=== PATIENT | female | born 1940 | race Caucasian/White ===

== ENCOUNTER 2024-07-17 09:28 | Outpatient (RCR) | payer OTHER, SELFPAY ==
--- NOTE | 2024-07-17 13:26 | CTCCONSULT_ITS ---
[address] [address] RE: MYNOR ELLIS.: 1940 AGE: 84 DATE OF CONSULTATION: 07/17/2024 DIAGNOSIS: Unprovoked?deep vein thrombosis diagnosed on 06/04/2024 on Eliquis REFERRING PHYSICIAN: Reva Pradhan PRIMARY PHYSICIAN :Reva Pradhan REASON FOR CONSULTATION: Leukopenia and anemia HISTORY OF PRESENT ILLNESS: Patient is a 84-year-old woman with a history of cervical cancer and she was treated with radiation t herapy. Patient developed right lower leg swelling. Patient was active and he was not sick. Patien t slept and woke up with right leg swelling. Patient gives a similar's history of leg swelling in left and at that time she had an x-ray but no ultrasound was obtained. That swelling healed on its own. Patient is concerned that she likely had DVT at that time to. Patient says that her vision is not as good as before. Otherwise do not have any residual weakness. Body part. 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 GI: No nausea, vomiting, diarrhea or constipation. CVS: No palpitations or angina pains. Respiratory: No cough, chest pain or shortness of breath. VITAL SIGNS: Date 07/17/2024 Time 9:38 AM Vital Signs, Weight and PS ? ??T (F) (F) 97.3 ??P 68 ??B/P (mmHg) 177/105 ??Height (in) (inch) 63 ??Weight (lb) (lb) 118 ??BSA(D) (m*2) 1.55 PHYSICAL EXAMINATION: Conjunctivae is white. Oral cavity is dry. Chest is clear to auscultation. No wheezes or rales audible. CVS: Rhythm regular, no murmurs or gallops present. Abdomen is soft. No hepatosplenomegaly. Extremities: Right leg visibly swollen than the left, no redness over the right leg, pulses not palpa ble on the right leg likely from swelling, swelling is extending all over to the area above knee ECOG 0 LABORATORY DATA: Date Time ASSESSMENT: Acute deep vein thrombus unprovoked Patient is a elderly 84-year-old very active woman Patient is independent of her daily activities. Given the history of cervical cancer, concern is for malignancy reoccurrence which likely increased her risk of blood clot Also patient was noted to have stroke on the CT scan and MRI was recommended for the brain I will also like to scan her right leg as swelling is persistent after more than 1 month of anticoagu lation to see if there is a clot which is still occlusive or nonocclusive No no anticoagulation workup at this time as it will not be accurate as patient is on blood thinner a nd have a clot PLAN: ??MRI brain to evaluate for stroke Continue Eliquis Ultrasound of the leg to see if patient's clot is getting better D-dimer level to monitor for the future Will get CT chest abdomen pelvis with IV contrast to evaluate for any reoccurrence of tumor to see if malignancy is causing the clot formation Patient should drink lots of water before and after the scan to avoid injury to the kidneys ORDERS: MRI + With Contrast + Brain Ultrasound ... Follow Up 1 Week RETURN TO CLINIC: cc: Irene Pradhan, Referring: Reva Pradhan Electronically Signed 07/17/2024 at 1:23 PM Herb Love MD Patient: MYNOR ELLIS : 1940 MR#: [id number] Account: [id number] FOLLOW UP NOTE Page 2 of 3
== END 2024-07-28 23:59 | disposition home or self-care (01) ==
LOC: SCTC 09:28
PROVIDERS: PCP Physician Assistant; Referring Provider Physician Assistant; Visit Provider Internal Medicine Hematology & Oncology
DX: I82.401 Acute embolism and thrombosis of unspecified deep veins of right lower extremity (principal); Z85.41 Personal history of malignant neoplasm of cervix uteri; Z79.01 Long term (current) use of anticoagulants
CPT/HCPCS: 99213; G0463

== ENCOUNTER → 2024-07-20 | Outpatient (CLI) | payer OTHER, SELFPAY ==
[2024-07-20 11:25] LABS: D-Dimer 550 ng/mL (<600)
== END | disposition home or self-care (01) ==
PROVIDERS: PCP Family Medicine; Referring Provider Internal Medicine Hematology & Oncology; Visit Provider Internal Medicine Hematology & Oncology
DX: I82.90 Acute embolism and thrombosis of unspecified vein (principal)
CPT/HCPCS: 36415; 85379

== ENCOUNTER → 2024-08-06 | Outpatient (CLI) | payer OTHER, SELFPAY ==
--- NOTE | 2024-08-06 13:06 | XR_ITS ---
Examination: Duplex scan of the lower extremity, unilateral right complete Date and time of exam: August 06, 2024 1415 hours INDICATIONS: Venous Doppler June 04, 2024 positive for acute occlusive thrombus right popliteal right peroneal right posterior tibial veins, undergoing chemotherapy Technique: Duplex scan of the extremity veins using B-mode/grayscale imaging and Doppler spectral analysis and color flow Attention is directed to internal echogenicity, compression and augmentation involving these veins, color flow assessment, spectral analysis Findings: Positive for nonocclusive thrombus involving the right popliteal right peroneal veins IMPRESSION: Improvement compared to venous Doppler June 04, 2024 but nonocclusive thrombus remains in the right popliteal right peroneal veins
[2024-08-06 17:18] LABS: Alanine Aminotransferase 10 U/L (10-49); Albumin, Serum 4.3 gm/dL (3.4-4.8); Albumin/Globulin Ratio 2.4 (1.2-2.2); Alkaline Phosphatase 53 U/L (46-116); Anion Gap 6 (7-16); Aspartate Amino Transferase 15 U/L (0-34); BUN/Creatinine Ratio 20 Ratio (12-20); Bilirubin,Total 0.5 mg/dL (0.3-1.2); Blood Urea Nitrogen 32 mg/dL (9-23); Calcium 9.6 mg/dL (8.3-10.6); Calcium (Corrected) 9.6 mg/dL (8.5-10.1); Carbon Dioxide 29.6 mMol/L (20.0-31.0); Chloride 104 mMol/L (98-107); Creatinine (Component) 1.6 mg/dL (0.6-1.3); Globulin 1.8 gm/dL (2.3-3.5); Glucose 91 mg/dL (74-106); Osmolality,Calculated 286 (275-295); Potassium 3.6 mMol/L (3.4-5.1); Sodium 140 mMol/L (136-145); Total Protein 6.1 gm/dL (5.7-8.2); eGFR 32 See Note
== END | disposition home or self-care (01) ==
LOC: CDIM 12:43 → SCTO 14:39
PROVIDERS: PCP Family Medicine; Referring Provider Internal Medicine Hematology & Oncology; Visit Provider Internal Medicine Hematology & Oncology
DX: I82.431 Acute embolism and thrombosis of right popliteal vein (principal)
CPT/HCPCS: 36415; 80053; 93971

== ENCOUNTER → 2024-08-09 | Outpatient (CLI) | payer OTHER, SELFPAY ==
--- NOTE | 2024-08-09 08:00 | XR_ITS ---
Examination: MRI brain without intravenous contrast. Date and time of exam: August 09, 2024 0826 hours INDICATIONS: Diagnosis acute embolism and thrombosis of unspecified deep veins of the right lower extremity, headaches dizziness worsening loss of vision numbness and paresthesias in the legs 4 months Technique: Multiple axial and sagittal images of the brain obtained. Siemens high-resolution 1.5 Georgette short bore scanners utilized. Sagittal sections, T1-weighted, TR 500, TE 14, are performed. Axial sections proton-density and T2-weighted have been obtained. Inversion recovery axial images, TR 9, 260, TE 111, TI 2500. Diffusion weighted images, axial sections, TR 4800, TE 128, B value 1000 Axial sections, ADC map, TR 4800, TE 128 Findings: Enlargement of the sella turcica is not present. The optic chiasm and infundibular are not remarkable. Prepontine and interpeduncular cisterns are not enlarged. There is no localized enlargement of the medulla or nate. Fourth ventricle and cerebellar tonsils appear normal in position. No subacute area of hemorrhage density is seen. Mass in the cerebellopontine angle region is not evident. Globes symmetrical. Orbital musculature including medial lateral rectus muscles do not exhibit abnormality. Diffusion-weighted images demonstrate no focus of restricted diffusion. Increased white matter signal prominent Mass effect upon the ventricular system is not identified. Impression: Negative for acute hemorrhage mass effect or midline shift No acute infarct Prominent microvascular white matter change, differential would include chronic multi-infarct dementia pattern
== END | disposition home or self-care (01) ==
PROVIDERS: PCP Family Medicine; Referring Provider Internal Medicine Hematology & Oncology; Visit Provider Internal Medicine Hematology & Oncology
DX: R90.82 White matter disease, unspecified (principal)
CPT/HCPCS: 70551

== ENCOUNTER 2024-08-13 14:18 | Outpatient (RCR) | payer OTHER, SELFPAY | END 2024-08-28 23:59 | disposition home or self-care (01) | LOC: SCTC 14:18 | PROVIDERS: PCP Family Medicine; Referring Provider Family Medicine; Visit Provider Nurse Practitioner Family | DX: I82.401 Acute embolism and thrombosis of unspecified deep veins of right lower extremity (principal); Z79.01 Long term (current) use of anticoagulants | CPT/HCPCS: 99212; G0463 ==

== ENCOUNTER → 2024-08-15 | Outpatient (CLI) | payer OTHER, SELFPAY ==
--- NOTE | 2024-08-15 14:00 | XR_ITS ---
Examination: CT chest, without intravenous contrast. CT abdomen, without intravenous contrast. CT pelvis, without intravenous contrast. 2-D sagittal and coronal reconstructions. 3-D reconstructions. Date and time of exam:August 15, 2024 1509 hours INDICATIONS: Cervical carcinoma diagnosis, generalized abdominal pain today CTDI vol (mgy) 6.37 DLP (MGycm)154 Technique: Multiple CT images, 3.0 mm slice thickness, obtained chest, abdomen, pelvis, with the high-resolution 64 slice scanner.. Sagittal and coronal 2-D reconstructions are obtained. 3-D reconstructions Low dose protocols were performed. One or more of the following dose reduction techniques were used; automated exposure control, adjustment of the mA and/or KV according to patient size, use of iterative reconstruction technique. Findings: 8mm right thyroid nodule Transverse dimension ascending thoracic aorta 4.1 cm Pulmonary artery segments not enlarged No paratracheal tracheobronchial or bronchopulmonary adenopathy No pneumonia or pulmonary edema or pleural disease or pulmonary mass lesion Retrocardiac gastric hernia No focal liver or splenic lesions Contracted gallbladder No pancreatic or adrenal mass Significant left hydronephrosis without definite ureteral calculi Moderate bilateral renal parenchymal scar formation Abdominal aortic calcification no aneurysmal dilatation No bowel obstruction Normal appendix No diverticulitis Urinary bladder intact IMPRESSION: Mild aneurysmal dilatation ascending thoracic aorta 4.1 cm No mediastinal lymphadenopathy No pneumonia or pulmonary edema or pleural disease Significant left hydronephrosis without definite ureteral calculi Recommend repeating the CT scan abdomen pelvis post intravenous contrast to better assess etiology of the left hydronephrosis
== END | disposition home or self-care (01) ==
PROVIDERS: PCP Family Medicine; Referring Provider Internal Medicine Hematology & Oncology; Visit Provider Internal Medicine Hematology & Oncology
DX: I71.21 Aneurysm of the ascending aorta, without rupture (principal); N13.30 Unspecified hydronephrosis
CPT/HCPCS: 71250; 74176

== ENCOUNTER → 2024-09-14 | Outpatient (CLI) | payer OTHER, SELFPAY ==
[2024-09-14 12:02] LABS: Basophils # (Auto) 0.1 Thou/mm3 (0.0-0.2); Basophils % (Auto) 1 % (0-2.5); Eosinophils # (Auto) 0.1 Thou/mm3 (0.0-0.5); Eosinophils % (Auto) 2 % (0-10); Hematocrit 34.2 % (36.0-46.0); Hemoglobin 11.1 g/dL (12.0-16.0); Immature Granulocytes % (Auto) 0 % (0-0); Immature Granulocytes Auto 0.01 Thou/mm3 (0.00-0.00); Lymphocytes % (Auto) 34 % (10-50); Mean Corpuscular HGB Conc 32.5 g/dl (31.0-37.0); Mean Corpuscular Hemoglobin 28.7 pg (25.0-35.0); Mean Corpuscular Volume 88 fL (80-100); Monocytes # (Auto) 0.6 Thou/mm3 (0.0-0.8); Monocytes % (Auto) 11 % (0-12); Neutrophils % (Auto) 51 % (37-80); Nucleated Red Blood Cell % 0 /100 WBC (0); Platelet Count 214 Thou/mm3 (140-440); RDW Standard Deviation 46.5 fL (36.4-46.3); Red Blood Count 3.87 Miln/mm3 (4.00-5.20); White Blood Count 5.8 Thou/mm3 (3.6-11.0)
[2024-09-14 12:20] LABS: D-Dimer 359 ng/mL (<600)
[2024-09-14 12:34] LABS: Alanine Aminotransferase 10 U/L (10-49); Albumin, Serum 4.4 gm/dL (3.4-4.8); Albumin/Globulin Ratio 2.4 (1.2-2.2); Alkaline Phosphatase 52 U/L (46-116); Anion Gap 7 (7-16); Aspartate Amino Transferase 15 U/L (0-34); BUN/Creatinine Ratio 21 Ratio (12-20); Bilirubin,Total 0.7 mg/dL (0.3-1.2); Blood Urea Nitrogen 34 mg/dL (9-23); Calcium 9.6 mg/dL (8.3-10.6); Calcium (Corrected) 9.6 mg/dL (8.5-10.1); Carbon Dioxide 30.2 mMol/L (20.0-31.0); Chloride 104 mMol/L (98-107); Creatinine (Component) 1.6 mg/dL (0.6-1.3); Globulin 1.8 gm/dL (2.3-3.5); Glucose 93 mg/dL (74-106); Osmolality,Calculated 288 (275-295); Potassium 3.6 mMol/L (3.4-5.1); Sodium 141 mMol/L (136-145); Total Protein 6.2 gm/dL (5.7-8.2); eGFR 32 See Note
== END | disposition home or self-care (01) ==
LOC: SCTO 11:06
PROVIDERS: PCP Family Medicine; Referring Provider Nurse Practitioner Family; Visit Provider Nurse Practitioner Family
DX: I82.401 Acute embolism and thrombosis of unspecified deep veins of right lower extremity (principal)
CPT/HCPCS: 36415; 80053; 85025; 85379

== ENCOUNTER → 2024-10-24 | Outpatient (CLI) | payer OTHER, SELFPAY ==
[2024-10-24 13:06] LABS: Basophils # (Auto) 0.1 Thou/mm3 (0.0-0.2); Basophils % (Auto) 1 % (0-2.5); Eosinophils # (Auto) 0.1 Thou/mm3 (0.0-0.5); Eosinophils % (Auto) 2 % (0-10); Hematocrit 35.4 % (36.0-46.0); Hemoglobin 11.5 g/dL (12.0-16.0); Immature Granulocytes % (Auto) 0 % (0-0); Immature Granulocytes Auto 0.01 Thou/mm3 (0.00-0.00); Lymphocytes # (Auto) 1.5 Thou/mm3 (1.0-4.8); Lymphocytes % (Auto) 27 % (10-50); Mean Corpuscular HGB Conc 32.5 g/dl (31.0-37.0); Mean Corpuscular Hemoglobin 28.9 pg (25.0-35.0); Mean Corpuscular Volume 89 fL (80-100); Monocytes # (Auto) 0.6 Thou/mm3 (0.0-0.8); Monocytes % (Auto) 10 % (0-12); Neutrophils # (Auto) 3.3 Thou/mm3 (1.8-7.7); Neutrophils % (Auto) 59 % (37-80); Nucleated Red Blood Cell % 0 /100 WBC (0); Platelet Count 202 Thou/mm3 (140-440); RDW Standard Deviation 45.7 fL (36.4-46.3); Red Blood Count 3.98 Miln/mm3 (4.00-5.20); White Blood Count 5.6 Thou/mm3 (3.6-11.0)
[2024-10-24 13:19] LABS: Alanine Aminotransferase 12 U/L (10-49); Albumin, Serum 4.2 gm/dL (3.4-4.8); Albumin/Globulin Ratio 2.2 (1.2-2.2); Alkaline Phosphatase 53 U/L (46-116); Anion Gap 8 (7-16); Aspartate Amino Transferase 22 U/L (0-34); BUN/Creatinine Ratio 15 Ratio (12-20); Bilirubin,Total 0.5 mg/dL (0.3-1.2); Blood Urea Nitrogen 27 mg/dL (9-23); Calcium 9.7 mg/dL (8.3-10.6); Calcium (Corrected) 9.7 mg/dL (8.5-10.1); Carbon Dioxide 28.6 mMol/L (20.0-31.0); Chloride 105 mMol/L (98-107); Creatinine (Component) 1.8 mg/dL (0.6-1.3); Globulin 1.9 gm/dL (2.3-3.5); Glucose 86 mg/dL (74-106); Osmolality,Calculated 287 (275-295); Sodium 142 mMol/L (136-145); Total Protein 6.1 gm/dL (5.7-8.2); eGFR 27 See Note
[2024-10-24 14:43] LABS: D-Dimer 353 ng/mL (<600)
== END | disposition home or self-care (01) ==
PROVIDERS: PCP Family Medicine; Referring Provider Nurse Practitioner Family; Visit Provider Nurse Practitioner Family
DX: I82.401 Acute embolism and thrombosis of unspecified deep veins of right lower extremity (principal)
CPT/HCPCS: 36415; 80053; 85025; 85379

== ENCOUNTER 2024-10-25 14:18 | Outpatient (RCR) | payer OTHER, SELFPAY | END 2024-10-26 23:59 | disposition home or self-care (01) | LOC: SCTC 14:18 | PROVIDERS: PCP Family Medicine; Referring Provider Family Medicine; Visit Provider Internal Medicine Hematology & Oncology | DX: K92.1 Melena (principal); N13.30 Unspecified hydronephrosis; I77.810 Thoracic aortic ectasia; Z86.718 Personal history of other venous thrombosis and embolism; Z79.01 Long term (current) use of anticoagulants; Z85.41 Personal history of malignant neoplasm of cervix uteri | CPT/HCPCS: 99212; G0463 ==

== ENCOUNTER → 2024-11-07 | Outpatient (CLI) | payer OTHER, SELFPAY ==
[2024-11-07 12:37] LABS: Basophils # (Auto) 0.1 Thou/mm3 (0.0-0.2); Basophils % (Auto) 1 % (0-2.5); Eosinophils # (Auto) 0.2 Thou/mm3 (0.0-0.5); Eosinophils % (Auto) 3 % (0-10); Hematocrit 33.2 % (36.0-46.0); Hemoglobin 10.9 g/dL (12.0-16.0); Immature Granulocytes % (Auto) 0 % (0-0); Immature Granulocytes Auto 0.01 Thou/mm3 (0.00-0.00); Lymphocytes # (Auto) 1.8 Thou/mm3 (1.0-4.8); Lymphocytes % (Auto) 35 % (10-50); Mean Corpuscular HGB Conc 32.8 g/dl (31.0-37.0); Mean Corpuscular Hemoglobin 29.5 pg (25.0-35.0); Mean Corpuscular Volume 90 fL (80-100); Monocytes # (Auto) 0.6 Thou/mm3 (0.0-0.8); Monocytes % (Auto) 11 % (0-12); Neutrophils # (Auto) 2.4 Thou/mm3 (1.8-7.7); Neutrophils % (Auto) 49 % (37-80); Nucleated Red Blood Cell % 0 /100 WBC (0); Platelet Count 190 Thou/mm3 (140-440); RDW Standard Deviation 45.9 fL (36.4-46.3); Reticulocyte % (Auto) 0.8 % (0.5-1.5); Reticulocyte Absolute Auto 28.1 Biln/L (25.0-75.0); Reticulocyte Hgb Content 32.5 pg (28.0-35.0)
[2024-11-07 12:51] LABS: D-Dimer < 250 ng/mL (<600)
[2024-11-07 13:01] LABS: Ferritin 53 ng/mL (7.3-270.7); Iron 62 mcg/dL (50-170); Percent Iron Saturation 20 % (20-55); Total Iron Binding Capacity 302 mcg/dL (250-425); Unsaturated Iron Binding 240 (225-295)
[2024-11-07 13:02] LABS: Folate 15.72 ng/mL (>5.38); Vitamin B12 222 pg/mL (211-911)
== END | disposition home or self-care (01) ==
LOC: SCTO 11:56
PROVIDERS: PCP Family Medicine; Referring Provider Nurse Practitioner Family; Visit Provider Nurse Practitioner Family
DX: I82.401 Acute embolism and thrombosis of unspecified deep veins of right lower extremity (principal)
CPT/HCPCS: 36415; 82607; 82728; 82746; 83540; 83550; 85025; 85046; 85379

== ENCOUNTER 2024-11-08 14:33 | Outpatient (RCR) | payer OTHER, SELFPAY | END 2024-11-26 23:59 | disposition home or self-care (01) | LOC: SCTC 14:33 | PROVIDERS: PCP Family Medicine; Referring Provider Family Medicine; Visit Provider Nurse Practitioner Family | DX: I82.401 Acute embolism and thrombosis of unspecified deep veins of right lower extremity (principal); K92.1 Melena; Z79.01 Long term (current) use of anticoagulants; I77.810 Thoracic aortic ectasia; E53.8 Deficiency of other specified B group vitamins; N13.30 Unspecified hydronephrosis | CPT/HCPCS: 99212; G0463 ==

== ENCOUNTER 2024-11-08 16:07 | Inpatient (IN) | payer OTHER, MEDICARE, SELFPAY ==
[2024-11-08 17:13] VITALS: BP 131/76; PULSE 71; RESP 18; TEMP 36.6; O2SAT 98; BMI 21.5
--- NOTE | 2024-11-08 17:58 | EKG_ITS ---
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
--- NOTE | 2024-11-08 17:58 | EDNOTE_ITS ---
ED General E/[facility] General Chief complaint: General Adult/Misc Complain Stated complaint: ADMIT BY JENNIFER Time Seen by Provider: 11/08/24 17:55 Arrival date/time: 11/08/24 16:07 RME / HPI RME / [facility] narrative: 84-year-old female patient with significant history of DVT, currently on Eliquis 5 mg twice daily, came in for evaluation regarding possible lower GI bleed. Patient has been having bleeding per rectum, described as light red in color, comes and goes, for several weeks. Patient was seen by GI specialist, Dr. Sanchez sent the patient here for possible admission for endoscopy and colonoscopy. Currently patient is denying any abdominal pain. Denies any dizziness. Been taking Eliquis on a regular basis. Related Data Home Medications ?Medication ?Instructions ?Recorded ?Confirmed Meclizine Hcl (Antivert) 25 mg PO [id number] ##0 9 Previous Rx's ?Medication ?Instructions ?Recorded apixaban 5 mg (74 tabs) tablets in 5 mg PO BID #74 tab s 06/04/24 a dose pack (Eliquis DVT-PE Treat 30D Start) Allergies Allergy/AdvReac Type Severity Reaction Status Date / Time No Known Allergies Allergy Unverified 11/08/24 16:12 Review of Systems Review of Systems Narrative Review of Systems: Review of system reviewed and within normal limits except mentioned in HPI ED Exam Narrative Physical exam: VITAL SIGNS: Reviewed. GENERAL APPEARANCE: Alert and interactive, follows commands, no acute distress, HEAD AND FACE: Non-traumatic. ENT: PERRL, pink conjunctivitis, eyelid no trauma, Mucous membrane moist. NECK: Supple, nontender, no nuchal rigidity. CHEST: No tenderness, no crepitus, no paradoxical movement, no retractions. LUNGS: Clear, well ventilated, symmetric, no rales, no wheezing, no ronchi, no stridor, good breath sounds bilaterally. HEART: Regular rate, regular rhythm, no murmur, no gallops. ABDOMEN: Soft, positive bowel sounds, nondistended, no guarding, nontender, no rebound, no masses, RECTAL: Deferred. GENITAL: Deferred. NEUROLOGICAL: Gross motor function intact sensory function intact, Appropriate for age. MUSCULOSKELETAL: low back nontender, full range of motion. EXTREMITIES: Nontender, full range of motion. SKIN: Color pink, dry, no rash, no lacerations, no abrasions, no contusions. LYMPHATICS: Deferred. Course Quality Measures none Orders Category Date Time Status COVID-19 Screening Questionnaire NOW Care 11/08/24 20:00 Active Decision to Admit X1 Care 11/08/24 20:00 Completed EKG (ED ONLY) *Do not use* NOW Care 11/08/24 17:58 Completed Endoscopy Consents .On arrival Care 11/08/24 22:15 Active Endoscopy Consents .On arrival Care 11/08/24 22:16 Active Insert IV NOW Care 11/08/24 22:27 Active Consult to Gastroenterology Stat Cons 11/08/24 17:57 Ordered Diet Clear Liquid Diet 11/08/24 Dinner Active Diet Clear Liquid Diet 11/09/24 Breakfast Active EKG (ED Only) Stat Exams 11/08/24 17:58 Draft CBC [CBC] Stat Lab 11/08/24 18:26 Completed CMP [Comprehensive Metabolic Panel] Stat Lab 11/08/24 18:26 Completed PT [Prothrombin Time with INR] Stat Lab 11/08/24 18:26 Completed PTT [Partial Thromboplastin Time] Stat Lab 11/08/24 18:26 Completed UA, C/S IF [Urinalysis, C/S if Indicated] Stat Lab 11/08/24 17:57 Ordered NA GARCIA/NAHCO3/HAMLET/PEG (Golytely) [Golytely] Med 11/08/24 20:01 Discontinued 4,000 ml PO X1 ONE Pantoprazole Inj [Protonix Inj] Med 11/08/24 20:01 Discontinued 80 mg IV X1 ONE Vital Signs Vital signs: Vital Signs Temperature 97.9 F 11/08/24 17:13 Pulse Rate 71 11/08/24 17:13 Respiratory Rate 18 11/08/24 17:13 Blood Pressure 131/76 H 11/08/24 17:13 Pulse Oximetry (%) 98 11/08/24 17:13 Oxygen Delivery Method Room Air 11/08/24 17:13 [facility] Patient data External records reviewed:: None Clinical information provided by:: patient and family Social determinants that could affect healthcare access:: none Patient has the following chronic illnesses:: DVT leg How is presenting disease/condition affected by chronic disease/condition?: e xacerbated by Evaluation data The following diagnostics were reviewed and interpreted by me:: lab results Lab and/or radiology exams considered but not ordered:: None Interpretation Summary: See results in MDM Medications Medications considered but not ordered:: none Medication administrations:: Medication Administration History Discontinued Medications Pantoprazole Sodium (Pantoprazole Inj 40 Mg Vial) 80 mg IV X1 ONE Stop: 11/08/24 20:02 Polyethylene Glycol/Electrolytes (Na Garcia/Nahco3/Hamlet/Peg (Golytely) 4,000 Ml Btl) 4,000 ml PO X1 ONE Stop: 11/08/24 20:02 Protonix IV GoLytely Consultations Consultation(s) initiated? (list below): Yes Consultation #1 (Physician, Specialty, Details): Dr. Sanchez, GI specialist on-call thank you Diagnosis Differential Diagnosis ED Complaint MDM: Lower GI bleed, upper GI bleed, DVT, on Eliquis Most likely diagnosis given after review of the tests above:: Lower GI bleed Admission Indicated Admission indicated?: indicated Explain why admission is indicated or not indicated:: Patient is to be admitted for further management. Admission Request Was there a request for admission?: Yes Admission Attestation Admission request attestation: Discussed case with [Dr. Valerio] from Hospitalist service regarding admission. Discussed patients ED course, exam findings, labs, and radiology results. The Hospitalist [agrees ] to accept the patient for admission. Disposition Plan Disposition Plan: Admit Medical Decision Making [facility] Narrative [facility] Narrative: 84-year-old female patient with significant history of DVT, currently on Eliquis 5 mg twice daily, came in for evaluation regarding possible lower GI bleed. Patient has been having bleeding per rectum, described as light red in color, comes and goes, for several weeks. Patient was seen by GI specialist, Dr. Sanchez sent the patient here for possible admission for endoscopy and colonoscopy. Currently patient is denying any abdominal pain. Denies any dizziness. Been taking Eliquis on a regular basis. Patient's workup today all came back with slight anemia of 11.6, the rest of the labs unremarkable. Except for creatinine 1.8 BUN of 33. Back with Dr. Sanchez, GI specialist on-call, who advised me to admit the patient. Patient should be started on GoLytely tonight. Clear liquid also. Spoke with hospitalist who admitted the patient. Differential Diagnosis Differential Diagnosis: Lower GI bleed, upper GI bleed, DVT, on Eliquis Lab Data 11/08/24 18:26 11/08/24 18:26 Labs: Lab Results 11/08/24 Range/Units 18:26 WBC 5.7 (3.6-11.0) Thou/mm3 RBC 4.02 (4.00-5.20) Miln/mm3 Hgb 11.6 L (12.0-16.0) g/dL Hct 35.3 L (36.0-46.0) % MCV 88 (80-100) fL MCH 28.9 (25.0-35.0) pg MCHC 32.9 (31.0-37.0) g/dl RDW Std Deviation 44.8 (36.4-46.3) fL Plt Count 206 (140-440) Thou/mm3 Neut % (Auto) 60 (37-80) % Lymph % (Auto) 28 (10-50) % Edmunds % (Auto) 9 (0-12) % Eos % (Auto) 2 (0-10) % Baso % (Auto) 1 (0-2.5) % Neut # (Auto) 3.4 (1.8-7.7) Thou/mm3 Lymph # (Auto) 1.6 (1.0-4.8) Thou/mm3 Edmunds # (Auto) 0.5 (0.0-0.8) Thou/mm3 Eos # (Auto) 0.1 (0.0-0.5) Thou/mm3 Baso # (Auto) 0.1 (0.0-0.2) Thou/mm3 Immature Gran # (Auto) 0.01 H (0.00-0.00) Thou/mm3 Absolute Nucleated RBC 0.00 (0.00-0.00) Thou/mm3 Immature Gran % 0 (0-0) % Nucleated RBC % 0 (0) /100 WBC PT 11.9 (9.0-12.2) Seconds INR 1.1 (0.9-1.3) APTT 33.2 (22.0-36.0) Seconds Sodium 143 (136-145) mMol/L Potassium 3.9 (3.4-5.1) mMol/L Chloride 106 (98-107) mMol/L Carbon Dioxide 27.0 (20.0-31.0) mMol/L Anion Gap 10 (7-16) BUN 33 H (9-23) mg/dL Creatinine 1.8 H (0.6-1.3) mg/dL Estim Creat Clear Calc 18.4 L (>60) mL/min eGFR 27 L (60 - ) See Note BUN/Creatinine Ratio 18 (12-20) Ratio Glucose 89 (74-106) mg/dL Calculated Osmolality 291 (275-295) Calcium 10.2 (8.3-10.6) mg/dL Corrected Calcium 10.2 H (8.5-10.1) mg/dL Total Bilirubin 0.6 (0.3-1.2) mg/dL AST 23 (0-34) U/L ALT 11 (10-49) U/L Alkaline Phosphatase 55 (46-116) U/L Total Protein 6.9 (5.7-8.2) gm/dL Albumin 4.4 (3.4-4.8) gm/dL Globulin 2.5 (2.3-3.5) gm/dL Albumin/Globulin Ratio 1.8 (1.2-2.2) Discharge Plan Plan Patient Disposition: Admit Acute Care w/in Hospital Disposition Comment: Stable Prescriptions/Referrals Prescriptions/Med Rec: No Action Meclizine Hcl (Antivert) 25 MG tablet 25 mg PO [id number] Qty: 0 Eliquis DVT-PE Treat 30D Start 5 mg (74 tabs) tablets,dose pack 5 mg PO BID Qty: 74 0RF Referrals: Peng Sanchez MD [Primary Care Provider] - In 1 week Problem List Clinical Impression: Gastrointestinal bleeding, lower Patient/Caregiver Discharge Instructions Print Language: Brazilian Stand Alone Forms: [employer] Award Info., Patient Portal Info Letter
[2024-11-08 18:59] LABS: Basophils # (Auto) 0.1 Thou/mm3 (0.0-0.2); Basophils % (Auto) 1 % (0-2.5); Eosinophils # (Auto) 0.1 Thou/mm3 (0.0-0.5); Eosinophils % (Auto) 2 % (0-10); Hematocrit 35.3 % (36.0-46.0); Hemoglobin 11.6 g/dL (12.0-16.0); Immature Granulocytes % (Auto) 0 % (0-0); Immature Granulocytes Auto 0.01 Thou/mm3 (0.00-0.00); Lymphocytes # (Auto) 1.6 Thou/mm3 (1.0-4.8); Lymphocytes % (Auto) 28 % (10-50); Mean Corpuscular HGB Conc 32.9 g/dl (31.0-37.0); Mean Corpuscular Hemoglobin 28.9 pg (25.0-35.0); Mean Corpuscular Volume 88 fL (80-100); Monocytes # (Auto) 0.5 Thou/mm3 (0.0-0.8); Monocytes % (Auto) 9 % (0-12); Neutrophils # (Auto) 3.4 Thou/mm3 (1.8-7.7); Neutrophils % (Auto) 60 % (37-80); Nucleated Red Blood Cell % 0 /100 WBC (0); Platelet Count 206 Thou/mm3 (140-440); RDW Standard Deviation 44.8 fL (36.4-46.3); Red Blood Count 4.02 Miln/mm3 (4.00-5.20); White Blood Count 5.7 Thou/mm3 (3.6-11.0)
[2024-11-08 19:06] LABS: INR 1.1 (0.9-1.3); Partial Thromboplastin Time 33.2 Seconds (22.0-36.0); Prothrombin Time 11.9 Seconds (9.0-12.2)
[2024-11-08 19:18] LABS: Alanine Aminotransferase 11 U/L (10-49); Albumin, Serum 4.4 gm/dL (3.4-4.8); Albumin/Globulin Ratio 1.8 (1.2-2.2); Alkaline Phosphatase 55 U/L (46-116); Anion Gap 10 (7-16); Aspartate Amino Transferase 23 U/L (0-34); BUN/Creatinine Ratio 18 Ratio (12-20); Bilirubin,Total 0.6 mg/dL (0.3-1.2); Blood Urea Nitrogen 33 mg/dL (9-23); Calcium 10.2 mg/dL (8.3-10.6); Calcium (Corrected) 10.2 mg/dL (8.5-10.1); Chloride 106 mMol/L (98-107); Creatinine (Component) 1.8 mg/dL (0.6-1.3); Estimated Creatinine Clearance 18.4 mL/min (>60); Globulin 2.5 gm/dL (2.3-3.5); Glucose 89 mg/dL (74-106); Osmolality,Calculated 291 (275-295); Potassium 3.9 mMol/L (3.4-5.1); Sodium 143 mMol/L (136-145); Total Protein 6.9 gm/dL (5.7-8.2); eGFR 27 See Note
--- NOTE | 2024-11-08 22:14 | PD.IMCONS ---
HPI Data of Consult Primary Care Provider: Peng Sanchez MD Consult Narrative Reason for consult: Melena, hematochezia History of present illness: 84 years old female sent to the emergency room because of melena and hematochezia she does have History of being on Eliquis for deep vein thrombosis of the right lower extremity cc:: cc: Review of Systems Review of Systems Systems Reviewed: All systems reviewed, normal except as documented Past Medical History Surgical History OTHER SURGICAL HX: Essential hypertension on amlodipine 10 mg p.o. daily and olmesartan 40 mg once a day Right lower extremity DVT on Eliquis 5 mg once a day Klor-Con 8 mEq p.o. daily Levothyroxine 25 mcg daily Meds Home Medications and Allergies Home Medications ?Medication ?Instructions ?Recorded ?Confirmed ?Type Meclizine Hcl (Antivert) 25 mg PO [id number] ##0 06/26/09 History Allergies Allergy/AdvReac Type Severity Reaction Status Date / Time No Known Allergies Allergy Unverified 11/08/24 16:12 Exam Vital Signs Temp Pulse Resp BP Pulse Ox O2 Del Method 97.9 F 71 18 131/76 H 98 Room Air 11/08/24 17:13 11/08/24 17:13 11/08/24 17:13 11/08/24 17:13 11/08/24 17:13 11/08/24 17:13 Constitutional Comments: Alert oriented Routine Respiratory Exam Comments: Normal to auscultation Routine Abdominal Exam Comments: Soft nontender Results Labs 11/08/24 18:26 11/08/24 18:26 Labs: Short CBC 11/08/24 Range/Units 18:26 WBC 5.7 (3.6-11.0) Thou/mm3 Hgb 11.6 L (12.0-16.0) g/dL Hct 35.3 L (36.0-46.0) % Plt Count 206 (140-440) Thou/mm3 BMP 11/08/24 18:26 Sodium 143 Potassium 3.9 Chloride 106 Carbon Dioxide 27.0 BUN 33 H Creatinine 1.8 H Glucose 89 Calcium 10.2 Liver Function 11/08/24 Range/Units 18:26 Total Bilirubin 0.6 (0.3-1.2) mg/dL AST 23 (0-34) U/L ALT 11 (10-49) U/L Alkaline Phosphatase 55 (46-116) U/L Albumin 4.4 (3.4-4.8) gm/dL Assessment and Plan Additional Assessment & Plan Additional Plan: # Melena # hematochezia # Posthemorrhagic anemia Plan Clear liquid diet GoLytely prep consent obtained for fiberoptic esophagogastroduodenoscopy under intravenous moderate sedation with possible biopsy possible therapeutic intervention and also fiberoptic colonoscopy with possible biopsy possible therapeutic intervention under intravenous moderate sedation procedure been tentatively scheduled for tomorrow Other medical problems include Essential hypertension Hypothyroidism deep vein thrombosis right lower extremity hold the Eliquis
[2024-11-08] MEDS: NA SU/NAHCO3/KC/PEG (Golytely) 4,000 ML BTL 4000 ML PO (23:06)
--- NOTE | 2024-11-08 23:38 | ESHP_ITS ---
<Statement entered by Pipo Grant MD - 11/09/24 04:26> 84-year-old female with multiple comorbidities including hypertension, hypothyroidism, history of cervical cancer status post radiation and DVT on Eliquis who presented with complaints of hematochezia however denies any hematemesis or melena. In the ER, patient was noted to have lower GI bleed and plan to admit the patient and start GoLytely. In addition, plan to hold off on Eliquis and obtain ultrasound of the lower extremity and if negative unlikely will need further Eliquis however if positive for DVT might consider IVC filter placement. As of now, plan to admit this patient to telemetry and monitor closely and GI on board. I reviewed above note and agree with findings and plans. I have also personally examined the patient with medicine team and went over assessment and plan with medical team including financial services intern and resident physician. Documentation for date of: 11/08/24 HPI History of Present Illness Chief complaint: LGIB History of present illness: HPI: An 84-year-old female patient with past medical history of hypertension, DVT on Eliquis, hypothyroidism, remote history of cervical cancer in her 20s s/p radiation and copilot based treatment presented to the ED due to lower GI bleed. Patient reported that she had a DVT that was diagnosed in May 2024 and she was started on Eliquis. After that she started to experience nausea and episodes of vomiting with increasing acid reflux. The symptoms associated with generalized mild abdominal discomfort which was intermittent. 2 weeks ago patient noticed that she started to have bleeding per rectum, moderate in amount with no clots. Reported that these episodes are intermittent and happens every other day. Patient denied any history of constipation, fever, chills, or any history of loss of weight. Patient denied any history of liver disease and denied any history of drinking or drug abuse. Home medications: Olmesartan, amlodipine, Eliquis, levothyroxine, potassium supplements ED course:At the ED patient was found to have normal vital signs blood pressure of 131/76, pulse rate of 71, pertinent lab showed hemoglobin of 11.6 which is consistent with her baseline level, platelets, coagulation panel all within normal limits, CBC showed BUN of 33, serum creatinine of 1.8 which is her baseline serum creatinine. Calcium level of 10.2, liver enzymes are within normal limits. ED team consulted the GI specialist Dr. Sanchez in which she recommended to prepare the patient with GoLytely for colonoscopy tomorrow. PMH: As above Social hx: Alcohol: Denied Tobacco: Denied Illicit drugs: Denied Allergies: No known allergies Exam Vital Signs Temp Pulse Resp BP Pulse Ox O2 Del Method 97.9 F 71 18 131/76 H 98 Room Air 11/08/24 17:13 11/08/24 17:13 11/08/24 17:13 11/08/24 17:13 11/08/24 17:13 11/08/24 17:13 Narrative Exam GEN: AOx3, able to speak full sentences HEENT: NC/AC, PERRLA, oral mucosa moist, neck supple CVS: RRR, S1-S2 present, no murmurs appreciated RESP: CTAB GI: soft,non distended,. Mild abdominal discomfort on palpation MSK: able to move all 4 limbs, right lower limb swelling which is chronic more than the left side SKIN: warm and dry REPORT ANALYST: CN II-XII and Sensation grossly intact. Results: Labs 11/08/24 18:26 11/08/24 18:26 Labs: Short CBC 11/08/24 Range/Units 18: WBC 5.7 (3.6-11.0) Thou/mm3 Hgb 11.6 L (12.0-16.0) g/dL Hct 35.3 L (36.0-46.0) % Plt Count 206 (140-440) Thou/mm3 BMP 11/08/24 18:26 Sodium 143 Potassium 3.9 Chloride 106 Carbon Dioxide 27.0 BUN 33 H Creatinine 1.8 H Glucose 89 Calcium 10.2 Liver Function 11/08/24 Range/Units 18:26 Total Bilirubin 0.6 (0.3-1.2) mg/dL AST 23 (0-34) U/L ALT 11 (10-49) U/L Alkaline Phosphatase 55 (46-116) U/L Albumin 4.4 (3.4-4.8) gm/dL Quality Measures Quality Measures none Advance care planning discussed with:: patient Medications Home Medications and Allergies Home Medications ?Medication ?Instructions ?Recorded ?Confirmed ?Type Meclizine Hcl (Antivert) 25 mg PO [id number] ##0 06/26/0 9 History Allergies Allergy/AdvReac Type Severity Reaction Status Date / Time No Known Allergies Allergy Unverified 11/08/24 16:12 Visit Medications Acetaminophen (Acetaminophen 325 Mg Tablet) 650 mg PO Q6H PRN PRN Reason: Fever >101.5 Stop: 12/08/24 23:27 Acetaminophen (Acetaminophen 325 Mg Tablet) 650 mg PO Q6H PRN PRN Reason: PAIN SCALE 1-3 (mild Stop: 12/08/24 23:27 Hydralazine HCl (Hydralazine Inj 20 Mg/Ml Vial) 10 mg IV Q1H PRN PRN Reason: SBP >180mmHg Stop: 12/08/24 23:44 Levothyroxine Sodium (Levothyroxine Sodium 25 Mcg Tablet) 25 mcg PO ACBR DEMARCO Stop: 12/09/24 05:59 Ondansetron HCl (Ondansetron Inj 2 Mg/Ml Inj 2 Ml) 4 mg IV Q6H PRN; Protocol PRN Reason: NAUSEA OR VOMITING Stop: 12/08/24 23:27 Oxycodone/Acetaminophen (Oxycodone/Apap 5/325 Tablet) 1 tab PO Q6H PRN PRN Reason: PAIN SCALE 4-6 (Moderate Stop: 11/13/24 23:27 Pantoprazole Sodium (Pantoprazole Inj 40 Mg Vial) 40 mg IVP QDAY DEMARCO Stop: 12/09/24 08:59 Discontinued Medications Pantoprazole Sodium (Pantoprazole Inj 40 Mg Vial) 80 mg IV X1 ONE Stop: 11/08/24 20:02 Polyethylene Glycol/Electrolytes (Na Garcia/Nahco3/Nicanor/Peg (Golytely) 4,000 Ml Btl) 4,000 ml PO X1 ONE Stop: 11/08/24 20:02 Last Admin: 11/08/24 23:06 Dose: 4,000 ml Assessment & Plan Plan Summary: An 84-year-old female patient with past medical history of hypertension, DVT on Eliquis, hypothyroidism, remote history of cervical cancer in her 20s s/p radiation and copilot based treatment presented to the ED due to lower GI bleed. Patient was admitted for management of lower GI bleed on colonoscopy tomorrow Assessment and plan #Lower GI bleed At the ED patient was found to have normal vital signs blood pressure of 131/76, pulse rate of 71, pertinent lab showed hemoglobin of 11.6 which is consistent with her baseline level, platelets, coagulation panel all within normal limits, CBC showed BUN of 33, serum creatinine of 1.8 which is her baseline serum creatinine. CT scan of the abdomen and pelvis in July 2024 showed only hydronephrosis, and thoracic aorta dilatation ED team consulted the GI specialist Dr. Sanchez in which she recommended to prepare the patient with GoLytely for colonoscopy tomorrow. Plan ? Admit patient to med/tele ? Obtain 2 large IV lines ? Protonix twice daily ? Continue GoLytely as per GI specialist Dr. Sanchez recommendations ? Follow-up with Dr. Sanchez recommendations ? Hold Eliquis in the settings of lower GI bleed - Keep the patient on clear liquid diet ? At the patient continued to bleed, consider placing IVC filter to prevent pulmonary embolus #History of hypertension Plan ? Start the patient on hydralazine IV 10 mg every 1 hours as needed if SBP more than 180 mmHg ?Resume home meds whenever appropriate have blood pressure elevated #Thoracic aorta aneurysmal dilatation CT scan showed thoracic aorta aneurysmal dilatation of 4.1, patient was unaware of the results Plan ? Recommend the patient to follow-up in outpatient settings #Undiagnosed CKD #Left-sided hydronephrosis, no obvious kidney stones Patient has serum creatinine of 1.8, her serum creatinine persistently right between 1.5-1.8, patient is unaware of her chronic kidney disease Patient reported that her doctor informed her that she has some issues with her left kidney however she does not take or done any procedure in that regard Plan ? Patient was recommended to follow-up in outpatient settings ? Consider consulting safety deposit boxes custodian if clinically warranted #History of hypothyroidism Plan ? Resume home med levothyroxine 25 mcg before breakfast ? Follow-up on the TSH level #History of DVT Plan ? Repeat bilateral Doppler ultrasound of the lower extremities Hospital Maintenance: FEN: Clear liquid diet DVT ppx: SCD GI ppx: Protonix IV lines: 2 large PIV Olvera: No Code status: Full code Dispo: Med/tele - Patient's plan and care discussed with my attending, Dr. Juanita Ferrer MD Internal Medicine PGY-2
[2024-11-09] VITALS (26 sets, daily range): BP systolic 123–154; BP diastolic 52–94; PULSE 62–106; RESP 14–98; TEMP 36.3–37; O2SAT 93–100; BMI 20.3
--- NOTE | 2024-11-09 | XR_ITS ---
Exam: Fluoroscopic guided IVC filter placement. INDICATION: DVT with contraindication to anticoagulation. Fluoroscopy time: 1.5 minutes Dose: 64.06 mGy DATE: 11/09/2024, 12:07 PM. PROCEDURE: After discussion of risks and benefits informed consent was obtained. Patient was brought to the angiography suite and placed supine on the exam table. The area over the right groin was cleaned and draped in normal sterile surgical fashion. 10 cc of 1% lidocaine was used for local anesthesia access to the right femoral vein was obtained with a micropuncture needle. 0.018 wire was advanced through the needle and the needle was withdrawn. 5 Fijian exchange sheath was placed over the wire and wire was withdrawn. A 0.035 wire was advanced through the sheath and the sheath was removed. The delivery sheath was placed over the wire and the wire was removed. Preliminary PSA exam of the IVC demonstrated normal size and alignment of the IVC single renal veins bilaterally. The inner cannula was removed. IVC filter was advanced through the delivery sheath and deployed at the L2-L3 level below the renal veins. Post filter placement IVC cavogram demonstrated normal alignment of the filter without evidence of complications sheath was withdrawn. Hemostasis was achieved. The access site was covered with sterile dressing. There are no immediate complications. IMPRESSION: Successful IVC filter placement as above.
[2024-11-09] MEDS: PANTOPRAZOLE INJ 40 MG VIAL 80 MG IV (02:11)
--- NOTE | 2024-11-09 02:55 | PC.NURSE ---
Report called to Dru ZHANG .
--- NOTE | 2024-11-09 05:00 | XR_ITS ---
Examination: Venous duplex lower extremity sonogram, bilateral. Date and time of exam: November 09, 2024, 0437 hrs. Indications: Bilateral leg pain several months, history deep vein thrombosis Technique: Multiple sonographic images of the deep venous system have been obtained. B-mode/2-D grayscale imaging of vascular structures and Doppler spectral analysis (waveforms) and color performed Both legs are examined. Findings: Positive for nonocclusive deep vein thrombosis involving the right popliteal right peroneal veins No DVT involving the left lower extremity Impression: Positive for DVT involving the right popliteal right peroneal veins
[2024-11-09] MEDS: LEVOTHYROXINE SODIUM 25 MCG TABLET PO (05:21)
[2024-11-09 06:14] LABS: Bilirubin,Urine Negative (Negative); Blood,Urine Negative (Negative); Clarity,Urine Clear (Clear/Hazy); Collection Type, Urine Clean Catch; Color,Urine Colorless (Lt Yel-Yel); Culture Indicated,Urine Not Indicated; Glucose, Urine Negative (Negative); Ketones,Urine Negative (Negative); Leukocyte Esterase,Urine Negative (Negative); Nitrite,Urine Negative (Negative); Protein,Urine Negative (Neg - Trace); RBC,Urine < 1 /hpf (0-3); Specific Gravity,Urine 1.006 (1.001-1.035); Squamous Epithelial Cell,Urine 0 /hpf (0-5); Urobilinogen,Urine Negative mg/dL (0.0-1.0); WBC,Urine 0 /hpf (0-5)
[2024-11-09 06:21] LABS: Basophils # (Auto) 0.1 Thou/mm3 (0.0-0.2); Basophils % (Auto) 1 % (0-2.5); Eosinophils # (Auto) 0.1 Thou/mm3 (0.0-0.5); Eosinophils % (Auto) 1 % (0-10); Hematocrit 33.9 % (36.0-46.0); Hemoglobin 11.2 g/dL (12.0-16.0); Immature Granulocytes % (Auto) 0 % (0-0); Immature Granulocytes Auto 0.02 Thou/mm3 (0.00-0.00); Lymphocytes # (Auto) 1.4 Thou/mm3 (1.0-4.8); Lymphocytes % (Auto) 24 % (10-50); Mean Corpuscular Hemoglobin 28.9 pg (25.0-35.0); Mean Corpuscular Volume 87 fL (80-100); Monocytes # (Auto) 0.5 Thou/mm3 (0.0-0.8); Monocytes % (Auto) 8 % (0-12); Neutrophils # (Auto) 3.8 Thou/mm3 (1.8-7.7); Neutrophils % (Auto) 66 % (37-80); Nucleated Red Blood Cell % 0 /100 WBC (0); Platelet Count 200 Thou/mm3 (140-440); Red Blood Count 3.88 Miln/mm3 (4.00-5.20); White Blood Count 5.8 Thou/mm3 (3.6-11.0)
[2024-11-09 06:47] LABS: Glucose Estimated Average 100 mg/dL (80-131); Hemoglobin A1C 5.1 % Hgb (4.8-6.0)
[2024-11-09 07:13] LABS: Alanine Aminotransferase 8 U/L (10-49); Albumin/Globulin Ratio 1.9 (1.2-2.2); Alkaline Phosphatase 52 U/L (46-116); Anion Gap 14 (7-16); Aspartate Amino Transferase 21 U/L (0-34); BUN/Creatinine Ratio 18 Ratio (12-20); Bilirubin,Total 0.8 mg/dL (0.3-1.2); Blood Urea Nitrogen 30 mg/dL (9-23); Calcium 9.3 mg/dL (8.3-10.6); Calcium (Corrected) 9.3 mg/dL (8.5-10.1); Carbon Dioxide 27.1 mMol/L (20.0-31.0); Chloride 103 mMol/L (98-107); Creatinine (Component) 1.7 mg/dL (0.6-1.3); Estimated Creatinine Clearance 20.9 mL/min (>60); Globulin 2.1 gm/dL (2.3-3.5); Glucose 76 mg/dL (74-106); Magnesium 2.1 mg/dL (1.6-2.6); Osmolality,Calculated 292 (275-295); Phosphorous 3.8 mg/dL (2.4-5.1); Potassium 3.7 mMol/L (3.4-5.1); Sodium 144 mMol/L (136-145); Thyroid Stimulating Hormone 4.93 uIU/mL (0.55-4.78); Total Protein 6.1 gm/dL (5.7-8.2); eGFR 29 See Note
--- NOTE | 2024-11-09 07:47 | PC.NURSE ---
Pt. refuses bed alarm and refuses assistance to the restroom, pt. ambulatory and denies use of walker or cane at home. Pt. states i can do this on my own, im doing well. pt. educated on fall precautions and to call for help if needed. Pt. agrees to education.
--- NOTE | 2024-11-09 07:49 | PC.NURSE ---
pt. educated to notify RN after BM for assessment as pt. is on Golytely pending colonoscopy.
[2024-11-09] MEDS: PANTOPRAZOLE INJ 40 MG VIAL IVP ×2 (08:22→20:42)
--- NOTE | 2024-11-09 10:58 | PC.SS ---
Follow up note: Colonoscopy prep. Positive for DVT.
[2024-11-09 13:31] LABS: Free T4 (Free Thyroxine) 1.69 ng/dL (0.89-1.76)
--- NOTE | 2024-11-09 16:31 | PD.IMPROG ---
Documentation for date of: 11/09/24 Subjective Subjective Interval history: Patient is positive for a DVT right lower extremity right popliteal vein and right peroneal veins Procedure canceled for today as patient is going get an IVC filter Exam Vital Signs Temp Pulse Resp BP Pulse Ox O2 Del Method O2 Flow Rate 97.3 F 105 H 16 141/94 H 93 L Room Air 4 11/09/24 16:00 11/09/24 16:00 11/09/24 16:00 11/09/24 16:00 11/09/24 16:00 11/09/24 16:00 11/09/24 13:42 Objective Labs 11/09/24 05:10 11/09/24 05:10 Labs: Laboratory Results - last 24 hr 11/08/24 11/09/24 11/09/24 18:26 05:10 05:35 WBC 5.7 5.8 RBC 4.02 3.88 L Hgb 11.6 L 11.2 L Hct 35.3 L 33.9 L MCV 88 87 MCH 28.9 28.9 MCHC 32.9 33.0 RDW Std Deviation 44.8 44.0 Plt Count 206 200 Neut % (Auto) 60 66 Lymph % (Auto) 28 24 [place] % (Auto) 9 8 Eos % (Auto) 2 1 Baso % (Auto) 1 1 Neut # (Auto) 3.4 3.8 Lymph # (Auto) 1.6 1.4 [place] # (Auto) 0.5 0.5 Eos # (Auto) 0.1 0.1 Baso # (Auto) 0.1 0.1 Immature Gran # (Auto) 0.01 H 0.02 H Absolute Nucleated RBC 0.00 0.00 Immature Gran % 0 0 Nucleated RBC % 0 0 PT 11.9 INR 1.1 APTT 33.2 Sodium 143 144 Potassium 3.9 3.7 Chloride 106 103 Carbon Dioxide 27.0 27.1 Anion Gap 10 14 BUN 33 H 30 H Creatinine 1.8 H 1.7 H Estim Creat Clear Calc 18.4 L 20.9 L eGFR 27 L 29 L BUN/Creatinine Ratio 18 18 Glucose [address] Glu mg/dL 100 Hemoglobin A1c 5.1 Calculated Osmolality 291 292 Calcium 10.2 9.3 Corrected Calcium 10.2 H 9.3 Phosphorus 3.8 Magnesium 2.1 Total Bilirubin 0.6 0.8 AST 23 21 ALT 11 8 L Alkaline Phosphatase 55 52 Total Protein 6.9 6.1 Albumin 4.4 4.0 Globulin 2.5 2.1 L Albumin/Globulin Ratio 1.8 1.9 TSH 4.93 H Free T4 1.69 Ur Collection Type Clean Catch Urine Color Colorless A Urine Clarity Clear Urine pH 7.0 Ur Specific [place] 1.006 Urine Protein Negative Urine Glucose (UA) Negative Urine Ketones Negative Urine Blood Negative Urine Nitrite Negative Urine Bilirubin Negative Urine Urobilinogen (Auto) Negative Ur Leukocyte Esterase Negative Urine RBC < 1 Urine WBC 0 Ur Squamous Epith Cells 0 Urine Bacteria None Ur Culture Indicated? Not Indicated Impressions Impression: Melena Hematochezia DVT right lower extremity Okay with IVC filter placement Colonoscopy EGD tomorrow with a continuing GoLytely prep Assessment & Plan A&P Narrative # Melena # hematochezia # Posthemorrhagic anemia Plan Clear liquid diet GoLytely prep consent obtained for fiberoptic esophagogastroduodenoscopy under intravenous moderate sedation with possible biopsy possible therapeutic intervention and also fiberoptic colonoscopy with possible biopsy possible therapeutic intervention under intravenous moderate sedation procedure been tentatively scheduled for tomorrow Other medical problems include Essential hypertension Hypothyroidism deep vein thrombosis right lower extremity hold the Eliquis Time Spent With Patient Time: Total time spent is greater than 50% in coordination of care (as documented) at patient's floor/unit and/or counseling patient:
--- NOTE | 2024-11-09 16:49 | ESPR_ITS ---
<Statement entered by Micaela Ramirez MD - 11/10/24 06:16> Patient was seen and examined by me personally. I have directly supervised and reviewed documentation by the team resident and agree with its findings with any exceptions or additional findings as below. Plan of care was discussed with the attending, Dr. Lee. Overnight admission. Patient is planned for colonoscopy to rule out lower GI bleed. However she has a right lower extremity DVT which is actively undergoing treatment with Eliquis since May 2024. Patient does endorse discomfort of the right leg sometimes and there is slight enlargement of the right compared with the left calf on exam. Due to the GI bleed Eliquis must be held, so patient had IVC placement today with IR. Proceed with Golytely and plan for colonoscopy likely tomorrow. Patient otherwise denies complaints. Micaela Ramirez, PGY-2 Documentation for date of: 11/09/24 Subjective Subjective Interval history: Patient was seen and examined by the bedside. No acute overnight events. Patient reports feeling better. Continues to drink GoLytely, reported having bloody stools. Due to signs of lower extremity DVT, a decision was made to proceed with IVC filter placement. Colonoscopy was postponed until after the procedure. PAtient is hemodynamically stable, Hgb 11.2. Exam Vital Signs Temp Pulse Resp BP Pulse Ox O2 Del Method O2 Flow Rate 97.3 F 105 H 16 141/94 H 93 L Room Air 4 11/09/24 16:00 11/09/24 16:00 11/09/24 16:00 11/09/24 16:00 11/09/24 16:00 11/09/24 16:00 11/09/24 13:42 Narrative Exam Physical Exam General: Awake and in no acute distress. Conversational and non-toxic appearing. HEENT: Normocephalic, atraumatic, mucous membranes moist. Heart: Regular rate and rhythm, no murmurs. Lungs: Clear to auscultation with no wheezing or crackles. Abdomen: Soft, nondistended, lower abdominal tenderness, more on the left side, positive bowel sounds. ?No guarding or rebound tenderness. Neurologic: Alert and oriented x3, no gross neurological deficit, and patient able to move all 4 extremities. Extremities: Right extremity swelling. Skin: No rash or ecchymoses. Objective Labs 11/10/24 05:06 11/10/24 05:06 Labs: Laboratory Results - last 24 hr 11/08/24 11/09/24 11/09/24 18:26 05:10 05:35 WBC 5.7 5.8 RBC 4.02 3.88 L Hgb 11.6 L 11.2 L Hct 35.3 L 33.9 L MCV 88 87 MCH 28.9 28.9 MCHC 32.9 33.0 RDW Std Deviation 44.8 44.0 Plt Count 206 200 Neut % (Auto) 60 66 Lymph % (Auto) 28 24 [place] % (Auto) 9 8 Eos % (Auto) 2 1 Baso % (Auto) 1 1 Neut # (Auto) 3.4 3.8 Lymph # (Auto) 1.6 1.4 [place] # (Auto) 0.5 0.5 Eos # (Auto) 0.1 0.1 Baso # (Auto) 0.1 0.1 Immature Gran # (Auto) 0.01 H 0.02 H Absolute Nucleated RBC 0.00 0.00 Immature Gran % 0 0 Nucleated RBC % 0 0 PT 11.9 INR 1.1 APTT 33.2 Sodium 143 144 Potassium 3.9 3.7 Chloride 106 103 Carbon Dioxide 27.0 27.1 Anion Gap 10 14 BUN 33 H 30 H Creatinine 1.8 H 1.7 H Estim Creat Clear Calc 18.4 L 20.9 L eGFR 27 L 29 L BUN/Creatinine Ratio 18 18 Glucose [address] Glu mg/dL 100 Hemoglobin A1c 5.1 Calculated Osmolality 291 292 Calcium 10.2 9.3 Corrected Calcium 10.2 H 9.3 Phosphorus 3.8 Magnesium 2.1 Total Bilirubin 0.6 0.8 AST 23 21 ALT 11 8 L Alkaline Phosphatase 55 52 Total Protein 6.9 6.1 Albumin 4.4 4.0 Globulin 2.5 2.1 L Albumin/Globulin Ratio 1.8 1.9 TSH 4.93 H Free T4 1.69 Ur Collection Type Clean Catch Urine Color Colorless A Urine Clarity Clear Urine pH 7.0 Ur Specific [place] 1.006 Urine Protein Negative Urine Glucose (UA) Negative Urine Ketones Negative Urine Blood Negative Urine Nitrite Negative Urine Bilirubin Negative Urine Urobilinogen (Auto) Negative Ur Leukocyte Esterase Negative Urine RBC < 1 Urine WBC 0 Ur Squamous Epith Cells 0 Urine Bacteria None Ur Culture Indicated? Not Indicated Quality Measures Quality Measures VTE prophylaxis (IVC filter) Advance care planning discussed with:: other Assessment & Plan Assessment Current Active Medications: Generic Name Dose Route Start Last Admin Trade Name Freq PRN Reason Stop Dose Admin Acetaminophen 650 mg 11/08/24 23:28 Acetaminophen 325 Mg Tablet PO 12/08/24 23:27 Q6H PRN Fever >101.5 Acetaminophen 650 mg 11/08/24 23:28 Acetaminophen 325 Mg Tablet PO 12/08/24 23:27 Q6H PRN PAIN SCALE 1-3 (mild Hydralazine HCl 10 mg 11/08/24 23:34 Hydralazine Inj 20 Mg/Ml Vial IV 12/08/24 23:44 Q1H PRN SBP >180mmHg Levothyroxine Sodium 25 mcg 11/09/24 06:00 11/09/24 05:21 Levothyroxine Sodium 25 Mcg Tablet PO 12/09/24 05:59 25 mcg ACBR DEMARCO Administration Ondansetron HCl 4 mg 11/08/24 23:28 Ondansetron Inj 2 Mg/Ml Inj 2 Ml IV 12/08/24 23:27 Q6H PRN NAUSEA OR VOMITING Protocol Oxycodone/Acetaminophen 1 tab 11/08/24 23:28 Oxycodone/Apap 5/325 Tablet PO 11/13/24 23:27 Q6H PRN PAIN SCALE 4-6 (Moderate Pantoprazole Sodium 40 mg 11/09/24 09:00 11/09/24 08:22 Pantoprazole Inj 40 Mg Vial IVP 12/09/24 08:59 40 mg BID DEMARCO Administration Plan The patient is a 84 year old female with previous medical history of hypertension, hypothyroidism, DVT (dx May 2024 on Eliquis) who was admitted for GI bleed rule out. #Lower GI bleed At the ED patient was found to have normal vital signs blood pressure of 131/76, pulse rate of 71, pertinent lab showed hemoglobin of 11.6 which is consistent with her baseline level, platelets, coagulation panel all within normal limits, CBC showed BUN of 33, serum creatinine of 1.8 which is her baseline serum creatinine. CT scan of the abdomen and pelvis in July 2024 showed only hydronephrosis, and thoracic aorta dilatation ED team consulted the GI specialist Dr. Sanchez in which she recommended to prepare the patient with GoLytely for colonoscopy tomorrow. 11/09: Hemoglobin 11.2, HCT 33.9%. Plan ? Med tele ? Protonix twice daily ? Continue GoLytely as per GI specialist Dr. Sanchez recommendations ? Follow-up with Dr. Sanchez recommendations ? Hold Eliquis in the settings of lower GI bleed - Keep the patient on clear liquid diet #Right leg DVT Patient has a history of DVT diagnosed in May 2024. US Doppler showed non- occluding thrombosis of popliteal and peroneal vein. Plan: - Eliquis on hold for now - IR IVC filter placement #Hypertension Plan ? Hydralazine IV 10 mg every 1 hours as needed if SBP more than 180 mmHg ? home Amlodipine 10 mg #Thoracic aorta aneurysmal dilatation CT scan showed thoracic aorta aneurysmal dilatation of 4.1, patient was unaware of the results Plan ? Recommend the patient to follow-up in outpatient settings #Undiagnosed CKD stage IV #Left-sided hydronephrosis, no obvious kidney stones Patient has serum creatinine of 1.8, her serum creatinine persistently right between 1.5-1.8, patient is unaware of her chronic kidney disease Patient reported that her doctor informed her that she has some issues with her left kidney however she does not take or done any procedure in that regard Plan: ? Follow-up in outpatient settings ? Monitor daily CMP #History of hypothyroidism 11/10/23: TSH 4.93, Free T4 1.69 Plan: ? Levothyroxine 25 mcg before breakfast Hospital Maintenance: FEN: Clear liquid diet DVT ppx: none, contraindicated, IVC filter placed GI ppx: Protonix IV lines: 2 PIV Olvera: No Code status: Full code Dispo: Med/tele Plan of care discussed with attending Dr. Lee, PGY-[address] Ramirez. Kemi Brown MD, PGY 1. Attending Provider Attestation/Addendum I reviewed labs, imaging, EKG, home medications and prior available records. Face to face evaluation was performed by me. I have personally examined the patient and discussed assessment and plan with the IM team. I reviewed the resident note and agree with the plan with exceptions as below. Lower GI bleed DVT on Eliquis CKD stage IIIb versus 4 Chronic anemia Consulted IR for IVC filter status post placement on 11/09 Held Eliquis GI consulted. Karol for colonoscopy
[2024-11-09] MEDS: amLODIPine BESYLATE 5 MG TABLET 10 MG PO (18:43)
[2024-11-10] VITALS (20 sets, daily range): BP systolic 100–152; BP diastolic 68–102; PULSE 61–87; RESP 12–96; TEMP 36.1–36.7; O2SAT 95–100
[2024-11-10] MEDS: LEVOTHYROXINE SODIUM 25 MCG TABLET PO (05:22)
[2024-11-10 05:59] LABS: Basophils # (Auto) 0.1 Thou/mm3 (0.0-0.2); Basophils % (Auto) 1 % (0-2.5); Eosinophils # (Auto) 0.1 Thou/mm3 (0.0-0.5); Eosinophils % (Auto) 2 % (0-10); Hematocrit 31.5 % (36.0-46.0); Hemoglobin 10.4 g/dL (12.0-16.0); Immature Granulocytes % (Auto) 0 % (0-0); Immature Granulocytes Auto 0.01 Thou/mm3 (0.00-0.00); Lymphocytes # (Auto) 1.6 Thou/mm3 (1.0-4.8); Lymphocytes % (Auto) 31 % (10-50); Mean Corpuscular Hemoglobin 28.7 pg (25.0-35.0); Mean Corpuscular Volume 87 fL (80-100); Monocytes # (Auto) 0.6 Thou/mm3 (0.0-0.8); Monocytes % (Auto) 11 % (0-12); Neutrophils # (Auto) 2.8 Thou/mm3 (1.8-7.7); Neutrophils % (Auto) 54 % (37-80); Nucleated Red Blood Cell % 0 /100 WBC (0); Platelet Count 184 Thou/mm3 (140-440); RDW Standard Deviation 44.9 fL (36.4-46.3); Red Blood Count 3.62 Miln/mm3 (4.00-5.20); White Blood Count 5.1 Thou/mm3 (3.6-11.0)
[2024-11-10 06:57] LABS: Alanine Aminotransferase < 7 U/L (10-49); Albumin, Serum 3.5 gm/dL (3.4-4.8); Albumin/Globulin Ratio 1.8 (1.2-2.2); Alkaline Phosphatase 46 U/L (46-116); Anion Gap 12 (7-16); Aspartate Amino Transferase 12 U/L (0-34); BUN/Creatinine Ratio 13 Ratio (12-20); Bilirubin,Total 0.6 mg/dL (0.3-1.2); Blood Urea Nitrogen 20 mg/dL (9-23); Calcium 8.8 mg/dL (8.3-10.6); Calcium (Corrected) 9.2 mg/dL (8.5-10.1); Carbon Dioxide 29.3 mMol/L (20.0-31.0); Chloride 103 mMol/L (98-107); Creatinine (Component) 1.5 mg/dL (0.6-1.3); Estimated Creatinine Clearance 23.7 mL/min (>60); Globulin 1.9 gm/dL (2.3-3.5); Glucose 82 mg/dL (74-106); Magnesium 1.8 mg/dL (1.6-2.6); Osmolality,Calculated 288 (275-295); Phosphorous 3.7 mg/dL (2.4-5.1); Sodium 144 mMol/L (136-145); Total Protein 5.4 gm/dL (5.7-8.2); eGFR 34 See Note
[2024-11-10 07:00] LABS: Potassium 2.6 mMol/L (3.4-5.1)
--- NOTE | 2024-11-10 07:19 | PC.NURSE ---
Lab called night RN about Potassium level, unknown what time previous RN was contacted. Dr. Whitaker aware and states we will replace potassium.
--- NOTE | 2024-11-10 07:42 | PC.NURSE ---
Confirm with Dr. Brown to only give Potassium 40 meq Po x1 for potassium of 2.6, along with 2 gm of magnesium IV. No furhter orders at this time.
[2024-11-10] MEDS: POTASSIUM CHLORIDE 20 mEq TABCR 40 MEQ PO (07:50)
[2024-11-10] MEDS: Magnesium Sulfate 2 GM Ivpb 2 GM/50 ML BAG IV (07:51)
[2024-11-10] MEDS: amLODIPine BESYLATE 5 MG TABLET 10 MG PO (08:05)
[2024-11-10] MEDS: PANTOPRAZOLE INJ 40 MG VIAL IVP ×2 (08:05→20:49)
[2024-11-10] MEDS: POTASSIUM CHL 10 mEq IVPB 10 MEQ/100 ML BAG 100 MEQ IV ×4 (09:10→14:13)
--- NOTE | 2024-11-10 10:15 | PC.NURSE ---
Spoke to Dr. Sanchez, Dr Sanchez aware of status of patient and orders enema. Pt. refused enema at this time but agrees that if next bowel movement is not completely clear then will agree to enema.
--- NOTE | 2024-11-10 12:12 | PC.NURSE ---
Pt. agreed to enema
--- NOTE | 2024-11-10 13:34 | ESPR_ITS ---
Documentation for date of: 11/10/24 Subjective Subjective Interval history: Patient was seen and examined by the bedside. No acute overnight events. Patient reports feeling better, finished her GoLytely prep. Colonoscopy is pending today. Reported having bowel movements, noticed bright red blood on the toilet paper. Hgb 10.4, HCT 31.5%. Also reported having umpleasant painful sensation in the legs, that start during the night, that alleviated by moving the legs. Exam Vital Signs Temp Pulse Resp BP Pulse Ox O2 Del Method O2 Flow Rate 97.3 F 74 17 125/79 95 Room Air 4 11/10/24 12:00 11/10/24 12:00 11/10/24 12:00 11/10/24 12:00 11/10/24 12:11/10/24 12:00 11/09/24 13:42 Narrative Exam Physical Exam General: Awake and in no acute distress. Conversational and non-toxic appearing. HEENT: Normocephalic, atraumatic, mucous membranes moist. Heart: Regular rate and rhythm, no murmurs. Lungs: Clear to auscultation with no wheezing or crackles. Abdomen: Soft, nondistended, lower abdominal tenderness, more on the left side, positive bowel sounds. ?No guarding or rebound tenderness. Neurologic: Alert and oriented x3, no gross neurological deficit, and patient able to move all 4 extremities. Extremities: Right extremity swelling. Skin: No rash or ecchymoses. Objective Labs 11/11/24 05:02 11/11/24 05:02 Labs: Laboratory Results - last 24 hr 11/10/24 05:06 WBC 5.1 RBC 3.62 L Hgb 10.4 L Hct 31.5 L MCV 87 MCH 28.7 MCHC 33.0 RDW Std Deviation 44.9 Plt Count 184 Neut % (Auto) 54 Lymph % (Auto) 31 [place] % (Auto) 11 Eos % (Auto) 2 Baso % (Auto) 1 Neut # (Auto) 2.8 Lymph # (Auto) 1.6 [place] # (Auto) 0.6 Eos # (Auto) 0.1 Baso # (Auto) 0.1 Immature Gran # (Auto) 0.01 H Absolute Nucleated RBC 0.00 Immature Gran % 0 Nucleated RBC % 0 Sodium 144 Potassium 2.6 L* D Chloride 103 Carbon Dioxide 29.3 Anion Gap 12 BUN 20 Creatinine 1.5 H Estim Creat Clear Calc 23.7 L eGFR 34 L BUN/Creatinine Ratio 13 Glucose 82 Calculated Osmolality 288 Calcium 8.8 Corrected Calcium 9.2 Phosphorus 3.7 Magnesium 1.8 Total Bilirubin 0.6 AST 12 ALT < 7 L Alkaline Phosphatase 46 Total Protein 5.4 L Albumin 3.5 D Globulin 1.9 L Albumin/Globulin Ratio 1.8 Quality Measures Quality Measures VTE prophylaxis (IVC filter) Advance care planning discussed with:: other Assessment & Plan Assessment Current Active Medications: Generic Name Dose Route Start Last Admin Trade Name Freq PRN Reason Stop Dose Admin Acetaminophen 650 mg 11/08/24 23:28 Acetaminophen 325 Mg Tablet PO 12/08/24 23:27 Q6H PRN Fever >101.5 Acetaminophen 650 mg 11/08/24 23:28 Acetaminophen 325 Mg Tablet PO 12/08/24 23:27 Q6H PRN PAIN SCALE 1-3 (mild Amlodipine Besylate 10 mg 11/09/24 17:15 11/10/24 08:05 Amlodipine Besylate 5 Mg Tablet PO 12/09/24 17:14 10 mg QDAY DEMARCO Administration Hydralazine HCl 10 mg 11/08/24 23:34 Hydralazine Inj 20 Mg/Ml Vial IV 12/08/24 23:44 Q1H PRN SBP >180mmHg Levothyroxine Sodium 25 mcg 11/09/24 06:00 11/10/24 05:22 Levothyroxine Sodium 25 Mcg Tablet PO 12/09/24 05:59 25 mcg ACBR DEMARCO Administration Ondansetron HCl 4 mg 11/08/24 23:28 Ondansetron Inj 2 Mg/Ml Inj 2 Ml IV 12/08/24 23:27 Q6H PRN NAUSEA OR VOMITING Protocol Oxycodone/Acetaminophen 1 tab 11/08/24 23:28 Oxycodone/Apap 5/325 Tablet PO 11/13/24 23:27 Q6H PRN PAIN SCALE 4-6 (Moderate Pantoprazole Sodium 40 mg 11/09/24 09:00 11/10/24 08:05 Pantoprazole Inj 40 Mg Vial IVP 12/09/24 08:59 40 mg BID DEMARCO Administration Plan The patient is a 84 year old female with previous medical history of hypertension, hypothyroidism, DVT (dx May 2024 on Eliquis) who was admitted for GI bleed rule out. #Lower GI bleed At the ED patient was found to have normal vital signs blood pressure of 131/76, pulse rate of 71, pertinent lab showed hemoglobin of 11.6 which is consistent with her baseline level, platelets, coagulation panel all within normal limits, CBC showed BUN of 33, serum creatinine of 1.8 which is her baseline serum creatinine. CT scan of the abdomen and pelvis in July 2024 showed only hydronephrosis, and thoracic aorta dilatation ED team consulted the GI specialist Dr. Sanchez in which she recommended to prepare the patient with GoLytely for colonoscopy tomorrow. 11/09: Hemoglobin 11.2, HCT 33.9%. 11/11/23: Hgb 10.4, HCT 31.5%. Reports having bowel movements, reports bright red blood on the toilet paper. Plan ? Med tele ? Protonix twice daily ? Continue GoLytely as per GI specialist Dr. Sanchez recommendations ? Follow-up with Dr. Sanchez recommendations ? Hold Eliquis in the settings of lower GI bleed - NPO for colonoscopy - Colonoscopy today #Right leg DVT Patient has a history of DVT diagnosed in May 2024. US Doppler showed non- occluding thrombosis of popliteal and peroneal vein. Plan: - Eliquis on hold for now - IR IVC filter placement 11/09/24 #Hypertension Plan ? Hydralazine IV 10 mg every 1 hours as needed if SBP more than 180 mmHg ? home Amlodipine 10 mg #Thoracic aorta aneurysmal dilatation CT scan showed thoracic aorta aneurysmal dilatation of 4.1, patient was unaware of the results Plan ? Recommend the patient to follow-up in outpatient settings #Undiagnosed CKD stage IV #Left-sided hydronephrosis, no obvious kidney stones Patient has serum creatinine of 1.8, her serum creatinine persistently right between 1.5-1.8, patient is unaware of her chronic kidney disease Patient reported that her doctor informed her that she has some issues with her left kidney however she does not take or done any procedure in that regard Plan: ? Follow-up in outpatient settings ? Monitor daily CMP #History of hypothyroidism 11/10/23: TSH 4.93, Free T4 1.69 Plan: ? Levothyroxine 25 mcg before breakfast Hospital Maintenance: FEN: NPO for conoscopy DVT ppx: none, contraindicated, IVC filter placed GI ppx: Protonix IV lines: 2 PIV [place]: No Code status: Full code Dispo: Med/tele Plan of care discussed with attending Dr. Lee, PGY-[address] Ramirez. Kemi Brown MD, PGY 1. -- ATTESTATION: I saw and examined the patient this morning, and I agree with current management stated by the resident. Will continue to monitor patient during their stay. Disclaimer: Despite multiple revisions, due to the dictation software being used, the document bellow may not be free of grammatical errors including phonetic/typographic errors. However, this does not deter from our commitment to providing health care in the patient's best interest in mind. Dr. Damien Whitaker, PGY-3 Attending Provider Attestation/Addendum I reviewed labs, imaging, EKG, home medications and prior available records. Face to face evaluation was performed by me. I have personally examined the patient and discussed assessment and plan with the IM team. I reviewed the resident note and agree with the plan with exceptions as below. Lower GI bleed DVT on Eliquis CKD stage IIIb Chronic anemia Hypokalemia Consulted IR for IVC filter status post placement on 11/09 Held Eliquis GI consulted. GoLytely for colonoscopy which was delayed till 11/10 Creatinine improved and close to baseline. Monitor kidney function. Avoid nephrotoxins. Renally dosed medications Replete potassium as needed and follow-up BMP
--- NOTE | 2024-11-10 14:39 | PC.SS ---
Rounding: Pt has IVC Filter pending colonoscopy
--- NOTE | 2024-11-10 15:17 | PC.NURSE ---
P. taken to Endo. Carol FLEMING Came to get IV potassium to finish infusing in Endoscopy
--- NOTE | 2024-11-10 16:09 | SUR.PHASEI ---
1605 patient to pacu via dara menendez, drowsy arousable with verbal stimuli will monitor
--- NOTE | 2024-11-10 18:40 | PC.NURSE ---
Called to Dr. Sanchez, pt.family asking for results from egd/colonoscopy. Dr. keenan and states after cases I will come by, I have three more cases.
[2024-11-11] VITALS (8 sets, daily range): BP systolic 105–133; BP diastolic 73–86; PULSE 64–82; RESP 15–96; TEMP 36.2–37.2; O2SAT 93–96
[2024-11-11 05:46] LABS: Basophils # (Auto) 0.1 Thou/mm3 (0.0-0.2); Basophils % (Auto) 1 % (0-2.5); Eosinophils # (Auto) 0.2 Thou/mm3 (0.0-0.5); Eosinophils % (Auto) 3 % (0-10); Hematocrit 32.8 % (36.0-46.0); Hemoglobin 10.8 g/dL (12.0-16.0); Immature Granulocytes % (Auto) 0 % (0-0); Immature Granulocytes Auto 0.01 Thou/mm3 (0.00-0.00); Lymphocytes # (Auto) 2.2 Thou/mm3 (1.0-4.8); Lymphocytes % (Auto) 36 % (10-50); Mean Corpuscular HGB Conc 32.9 g/dl (31.0-37.0); Mean Corpuscular Hemoglobin 28.7 pg (25.0-35.0); Mean Corpuscular Volume 87 fL (80-100); Monocytes # (Auto) 0.6 Thou/mm3 (0.0-0.8); Monocytes % (Auto) 10 % (0-12); Neutrophils % (Auto) 51 % (37-80); Nucleated Red Blood Cell % 0 /100 WBC (0); Platelet Count 184 Thou/mm3 (140-440); Red Blood Count 3.76 Miln/mm3 (4.00-5.20)
[2024-11-11] MEDS: LEVOTHYROXINE SODIUM 25 MCG TABLET PO (05:50)
[2024-11-11 06:30] LABS: Alanine Aminotransferase < 7 U/L (10-49); Albumin, Serum 3.6 gm/dL (3.4-4.8); Albumin/Globulin Ratio 1.9 (1.2-2.2); Alkaline Phosphatase 48 U/L (46-116); Anion Gap 12 (7-16); Aspartate Amino Transferase 17 U/L (0-34); BUN/Creatinine Ratio 11 Ratio (12-20); Bilirubin,Total 0.6 mg/dL (0.3-1.2); Blood Urea Nitrogen 17 mg/dL (9-23); Calcium 8.9 mg/dL (8.3-10.6); Calcium (Corrected) 9.2 mg/dL (8.5-10.1); Carbon Dioxide 26.3 mMol/L (20.0-31.0); Chloride 102 mMol/L (98-107); Creatinine (Component) 1.6 mg/dL (0.6-1.3); Estimated Creatinine Clearance 22.2 mL/min (>60); Globulin 1.9 gm/dL (2.3-3.5); Glucose 90 mg/dL (74-106); Magnesium 1.9 mg/dL (1.6-2.6); Osmolality,Calculated 280 (275-295); Phosphorous 4.6 mg/dL (2.4-5.1); Potassium 3.3 mMol/L (3.4-5.1); Sodium 140 mMol/L (136-145); Total Protein 5.5 gm/dL (5.7-8.2); eGFR 32 See Note
[2024-11-11] MEDS: PANTOPRAZOLE INJ 40 MG VIAL IVP (09:06)
[2024-11-11] MEDS: amLODIPine BESYLATE 5 MG TABLET 10 MG PO (09:06)
[2024-11-11] MEDS: POTASSIUM CHLORIDE 20 mEq TABCR 40 MEQ PO (09:06)
--- NOTE | 2024-11-11 09:47 | PC.SS ---
Rounding note: Patient has multiple DVTs, IVC filter inserted, also pending Dr. Sanchez consult.
--- NOTE | 2024-11-11 17:23 | ESDS_ITS ---
<Statement entered by Micaela Ramirez MD - 11/12/24 07:45> Patient was seen and examined by me personally. I have reviewed the below documentation by the team resident and agree with its findings with any exceptions as below. Discharge plan was discussed with the attending, Dr. Lee. Patient to follow up with Dr. Sanchez in 1-2 weeks for biopsy colonoscopy result of tubular adenoma. Patient may resume Eliquis for DVT. She has an IVC filter that was placed this admission, PCP to follow and determine when it can be removed. Micaela Ramirez, PGY-2 Planned Discharge Date 11/11/24 DS: Providers Provider Date of admission: 11/08/24 23:28 Primary care physician: Peng Sanchez MD Admitting Provider: Pipo Grant MD Attending Provider on Admission: Bebeto Lee MD Consults: 11/08/24 17:57 Consult to Gastroenterology Stat Comment: Lower GI bleed Consulting Provider: Peng Sanchez Attending Provider on DC: Kemi Brown MD Discharging Provider: Kemi Brown MD DS: Diagnosis Problem List Completed Was Problem List Reviewed/Reconciled?: Yes Hospital Course Hospital Course Hospital course: The patient is a 84-year-old female with past medical history of hypertension, DVT on Eliquis, hypothyroidism, history of cervical cancer s/p radiation therapy in her 20s who was brought to the ED 11/08/2024 due to bright red blood in her stool and bleeding per rectum, abdominal discomfort. In the ED she was hemodynamically stable, afebrile, hemoglobin was stable, renal function panel was consistent with CKD. GI specialist Dr. Sanchez was consulted and patient was admitted for GI bleed workup and was started for colonoscopy prep. She was started on Protonix, Eliquis was held in the setting of GI bleed. Ultrasound Doppler of the lower extremities revealed nonobstructing clot in right deep veins of the lower extremities. Due to contraindication to pharmacological and mechanical DVT prophylaxis decision was made to do an IR guided IVC filter placement. After that colonoscopy and EGD was done 11/10/2024. EGD showed gastritis, was negative for signs bleeding. Colonoscopy was positive for hemorrhoids, ulcerated nonobstructing mass appearing to be villous tubular adenoma 3 cm over 2.5 cm in the rectum, samples were taken for histology. She was seen and examined at the bedside and was medically cleared for discharge home with instructions. Hospital diagnoses: #Lower GI bleed #Rectal tumor #Right leg DVT #Hypertension #Thoracic aorta aneurysmal dilatation #CKD stage IV #Left-sided hydronephrosis, no obvious kidney stones #History of hypothyroidism Discharge recommendations: - Follow-up with your PCP in 1-2 weeks - Follow up with Dr. Sanchez in 2 weeks for the results of the biopsy - Eat diet high in fiber - Try doing Kegels exercise and talk to your PCP about urology referral - Take pantoprazole 40 mg every day For your blood clot in the leg: - Continue taking Eliquis 5 mg two times a day For your kidney failure: - Follow-up with wooden fence erector outpatient - Stop taking Potassium tablets - Take the rest of the medications as precribed If your symptoms worsen, call 911 or come to the ED. Plan of care discussed with attending Dr. Lee, PGY-[address] Ramirez and PGY-[address] Whitaker. Kemi Brown MD, PGY 1. Time Spent with Patient Time attestation: Total time spent providing and/or coordinating discharge services: Exam Vital Signs Temp Pulse Resp BP Pulse Ox O2 Del Method O2 Flow Rate 97.5 F 82 18 133/86 H 95 Room Air 2 11/11/24 12:00 11/11/24 12:00 11/11/24 12:11/11/24 12:00 11/11/24 12:11/11/24 12:00 11/10/24 16:36 Narrative Exam Physical Exam General: Awake and in no acute distress. Conversational and non-toxic appearing. HEENT: Normocephalic, atraumatic, mucous membranes moist. Heart: Regular rate and rhythm, no murmurs. Lungs: Clear to auscultation with no wheezing or crackles. Abdomen: Soft, nondistended, lower abdominal tenderness, more on the left side, positive bowel sounds. ?No guarding or rebound tenderness. Neurologic: Alert and oriented x3, no gross neurological deficit, and patient able to move all 4 extremities. Extremities: Right extremity swelling. Skin: No rash or ecchymoses. Discharge Plan Plan Patient Disposition: HOME (Self Care) Disposition Comment: Stable Care Plan Goals: Discharge recommendations: - Follow-up with your PCP in 1-2 weeks - Follow up with Dr. Sanchez in 2 weeks for the results of the biopsy - Eat diet high in fiber - Try doing Kegels exercise and talk to your PCP about urology referral - Take pantoprazole 40 mg every day For your blood clot in the leg: - Continue taking Eliquis 5 mg two times a day For your kidney failure: - Follow-up with wooden fence erector outpatient - Stop taking Potassium tablets - Take the rest of the medications as precribed If your symptoms worsen, call 911 or come to the ED. Prescriptions/Referrals Prescriptions/Med Rec: New pantoprazole 40 mg tablet,delayed release (DR/EC) 40 mg PO QDAY 30 Days Qty: 30 0RF Continued Meclizine Hcl (Antivert) 25 MG tablet 25 mg PO [id number] Qty: 0 Eliquis DVT-PE Treat 30D Start 5 mg (74 tabs) tablets,dose pack 5 mg PO BID Qty: 74 0RF levothyroxine 25 mcg tablet 25 mcg PO QDAY Patient Comments: TAKE 1 TABLET BY MOUTH EVERY DAY IN THE MORNING ON EMPTY STOMACH FOR 90 DAYS amlodipine 10 mg tablet 10 mg PO QDAY Patient Comments: TAKE 1 TABLET BY MOUTH EVERY DAY FOR 90 DAYS olmesartan 40 mg tablet 40 mg PO QDAY Patient Comments: TAKE 1 TABLET BY MOUTH EVERY DAY Discontinued potassium chloride [Klor-Con 8] 8 mEq tablet extended release 8 meq PO QDAY Patient Comments: TAKE 1 TABLET BY MOUTH EVERY DAY Referrals: Peng Sanchez MD [Primary Care Provider] - Patient/Caregiver Discharge Instructions Education Materials: Bleeding Gastrointestinal, Colonoscopy, Treating Incontinence in Women ..., RLS, Anatomy of the Digestive System, DVT Dc Print Language: Slovak Stand Alone Forms: [place] Award Info., Patient Portal Info Letter Discharge Order Discharge Orders: Discharge (Routine); Ordered 11/11/24 Ordered By: Kemi Brown Quality Discharge Quality Measures VTE prophylaxis (IVC filter) Attestestation Attestation I reviewed labs, imaging, EKG, home medications and prior available records. Face to face evaluation was performed by me. I have personally examined the patient and discussed assessment and plan with the IM team. I reviewed the resident note and agree with the plan with exceptions as below. Lower GI bleed DVT on Eliquis CKD stage IIIb Chronic anemia Hypokalemia Consulted IR for IVC filter status post placement on 11/09 Discussed with GI: Okay to resume anticoagulation. Monitor closely for bleeding. GI consulted. Status post colonoscopy that showed villous tubular adenoma 3 x 2.5 cm s/p biopsy. Will resect based on the biopsy results. Follow-up with GI in 2 weeks Creatinine improved and close to baseline. Monitor kidney function. Avoid nephrotoxins. Renally dosed medications Repleted potassium. Monitor BMP as outpatient Time spent is 40 minutes. More than 50% of the time was spent on patient education and coordination of care.
--- NOTE | 2024-11-11 19:03 | ESPR_ITS ---
Documentation for date of: 11/11/24 Subjective Subjective Interval history: Late entry for the note Hemoglobin hematocrit 10.8 32.8 Exam Vital Signs Temp Pulse Resp BP Pulse Ox O2 Del Method O2 Flow Rate 97.5 F 82 18 133/86 H 95 Room Air 2 11/11/24 12:00 11/11/24 12:00 11/11/24 12:00 11/11/24 12:00 11/11/24 12:00 11/11/24 12:00 11/10/24 16:36 Objective Labs 11/11/24 05:02 11/11/24 05:02 Labs: Laboratory Results - last 24 hr 11/11/24 05:02 WBC 6.0 RBC 3.76 L Hgb 10.8 L Hct 32.8 L MCV 87 MCH 28.7 MCHC 32.9 RDW Std Deviation 44.0 Plt Count 184 Neut % (Auto) 51 Lymph % (Auto) 36 [place] % (Auto) 10 Eos % (Auto) 3 Baso % (Auto) 1 Neut # (Auto) 3.0 Lymph # (Auto) 2.2 [place] # (Auto) 0.6 Eos # (Auto) 0.2 Baso # (Auto) 0.1 Immature Gran # (Auto) 0.01 H Absolute Nucleated RBC 0.00 Immature Gran % 0 Nucleated RBC % 0 Sodium 140 Potassium 3.3 L D Chloride 102 Carbon Dioxide 26.3 Anion Gap 12 BUN 17 Creatinine 1.6 H Estim Creat Clear Calc 22.2 L eGFR 32 L BUN/Creatinine Ratio 11 L Glucose 90 Calculated Osmolality 280 Calcium 8.9 Corrected Calcium 9.2 Phosphorus 4.6 Magnesium 1.9 Total Bilirubin 0.6 AST 17 ALT < 7 L Alkaline Phosphatase 48 Total Protein 5.5 L Albumin 3.6 Globulin 1.9 L Albumin/Globulin Ratio 1.9 Impressions Impression: Rectal mass/polyp biopsies pending Okay to discharge patient home I will see the patient back in follow-up in 1 week Patient can be sent home on [facility] Assessment & Plan A&P Narrative # Melena # hematochezia # Posthemorrhagic anemia Plan Clear liquid diet GoLytely prep consent obtained for fiberoptic esophagogastroduodenoscopy under intravenous moderate sedation with possible biopsy possible therapeutic intervention and also fiberoptic colonoscopy with possible biopsy possible therapeutic intervention under intravenous moderate sedation procedure been tentatively scheduled for tomorrow Other medical problems include Essential hypertension Hypothyroidism deep vein thrombosis right lower extremity hold the Eliquis Time Spent With Patient Time: Total time spent is greater than 50% in coordination of care (as documented) at patient's floor/unit and/or counseling patient:
== END 2024-11-11 13:35 | disposition home or self-care (01) | DRG 374 ==
LOC: SERX 22:35 → SERHOLD 11-09 00:40 → S3NX 11-09 03:51
PROVIDERS: Nurse Practitioner Family; Student in an Organized Health Care Education/Training Program; Admitting Provider Internal Medicine; Emergency Provider Emergency Medicine; PCP Specialist; Visit Provider Student in an Organized Health Care Education/Training Program
PROC: 0DJD8ZZ Inspection of Lower Intestinal Tract, Via Natural or Artificial Opening Endoscopic (ICD-10-PCS; CPT 45378; principal; 2024-11-10 12:00)
PROC: 0DBP8ZX Excision of Rectum, Via Natural or Artificial Opening Endoscopic, Diagnostic (ICD-10-PCS; CPT 43239; 2024-11-10 12:00)
DX: D49.0 Neoplasm of unspecified behavior of digestive system (principal); K29.71 Gastritis, unspecified, with bleeding; I82.431 Acute embolism and thrombosis of right popliteal vein; N13.30 Unspecified hydronephrosis; N18.4 Chronic kidney disease, stage 4 (severe); I12.9 Hypertensive chronic kidney disease with stage 1 through stage 4 chronic kidney disease, or unspecified chronic kidney disease; E03.9 Hypothyroidism, unspecified; K21.9 Gastro-esophageal reflux disease without esophagitis; D50.0 Iron deficiency anemia secondary to blood loss (chronic); K44.9 Diaphragmatic hernia without obstruction or gangrene; I71.9 Aortic aneurysm of unspecified site, without rupture; E87.6 Hypokalemia; K64.9 Unspecified hemorrhoids; Z85.41 Personal history of malignant neoplasm of cervix uteri; Z86.718 Personal history of other venous thrombosis and embolism; Z79.01 Long term (current) use of anticoagulants; Z92.3 Personal history of irradiation; Z53.9 Procedure and treatment not carried out, unspecified reason
CPT/HCPCS: 36415; 80053; 81001; 83036; 83735; 84100; 84439; 84443; 85025; 85610; 85730; 93005; 93225; 93970; 96374; 99152; 99285; A4649; C1769; C1880; C1894; J1200; J2250; J2470; J3010; J3475; J3480; J7050; Q9967; A9270

== ENCOUNTER 2024-12-11 11:27 | Emergency (ER) | payer OTHER, SELFPAY ==
[2024-12-11 11:28] VITALS: BMI 20.9
[2024-12-11 12:11] VITALS: BP 122/76; PULSE 85; RESP 20; TEMP 36.9; O2SAT 97; BMI 20.7
--- NOTE | 2024-12-11 12:11 | XR_ITS ---
Examination: Duplex scan of the lower extremity, unilateral left complete Date and time of exam: December 11, 2024 1230 hours Comparison November 09, 2024 INDICATIONS: Left foot swelling beginning 3 days ago, patient is anticoagulated, bilateral venous Doppler November 09, 2024 positive for thrombus right popliteal right peroneal veins nonocclusive Technique: Duplex scan of the extremity veins using B-mode/grayscale imaging and Doppler spectral analysis and color flow Attention is directed to internal echogenicity, compression and augmentation involving these veins, color flow assessment, spectral analysis Findings: Major deep venous structures in the extremity demonstrate normal course and caliber. There is no evidence of deep vein thrombosis. Normal color flow and spectral analysis Impression: Negative for DVT..
--- NOTE | 2024-12-11 12:12 | EDRME_ITS ---
Rapid Medical Screening Exam [facility] Arrival date/time: 12/11/24 11:27 84-year-old female with a history of DVT, hypertension, hypothyroidism presents to the emergency room with a chief complaint of swelling and tenderness to her left lower extremity. Patient states she is currently on blood thinners due to a clot in her right leg. I have greeted and performed a focused initial assessment of this patient. A comprehensive ED assessment and evaluation of the patient, analysis of all test results, and completion of the medical decision making process will be conducted by additional ED providers. Chief Complaint: Extremity Injury, Lower Vital signs reviewed by provider: Yes
[2024-12-11 12:40] LABS: Basophils # (Auto) 0.1 Thou/mm3 (0.0-0.2); Basophils % (Auto) 1 % (0-2.5); Eosinophils # (Auto) 0.2 Thou/mm3 (0.0-0.5); Eosinophils % (Auto) 3 % (0-10); Hemoglobin 10.8 g/dL (12.0-16.0); Immature Granulocytes % (Auto) 0 % (0-0); Immature Granulocytes Auto 0.02 Thou/mm3 (0.00-0.00); Lymphocytes # (Auto) 1.5 Thou/mm3 (1.0-4.8); Lymphocytes % (Auto) 23 % (10-50); Mean Corpuscular HGB Conc 32.7 g/dl (31.0-37.0); Mean Corpuscular Hemoglobin 29.1 pg (25.0-35.0); Mean Corpuscular Volume 89 fL (80-100); Monocytes # (Auto) 0.7 Thou/mm3 (0.0-0.8); Monocytes % (Auto) 11 % (0-12); Neutrophils # (Auto) 4.1 Thou/mm3 (1.8-7.7); Neutrophils % (Auto) 62 % (37-80); Nucleated Red Blood Cell % 0 /100 WBC (0); Platelet Count 301 Thou/mm3 (140-440); RDW Standard Deviation 46.3 fL (36.4-46.3); Red Blood Count 3.71 Miln/mm3 (4.00-5.20); White Blood Count 6.5 Thou/mm3 (3.6-11.0)
[2024-12-11 13:09] LABS: Alanine Aminotransferase 8 U/L (10-49); Albumin, Serum 4.2 gm/dL (3.4-4.8); Albumin/Globulin Ratio 1.9 (1.2-2.2); Alkaline Phosphatase 60 U/L (46-116); Anion Gap 9 (7-16); Aspartate Amino Transferase 18 U/L (0-34); BUN/Creatinine Ratio 21 Ratio (12-20); Bilirubin,Total 0.4 mg/dL (0.3-1.2); Blood Urea Nitrogen 33 mg/dL (9-23); Calcium 9.1 mg/dL (8.3-10.6); Calcium (Corrected) 9.1 mg/dL (8.5-10.1); Carbon Dioxide 28.5 mMol/L (20.0-31.0); Chloride 105 mMol/L (98-107); Creatinine (Component) 1.6 mg/dL (0.6-1.3); Estimated Creatinine Clearance 21.7 mL/min (>60); Globulin 2.2 gm/dL (2.3-3.5); Glucose 109 mg/dL (74-106); Osmolality,Calculated 291 (275-295); Potassium 3.9 mMol/L (3.4-5.1); Sodium 142 mMol/L (136-145); Total Protein 6.4 gm/dL (5.7-8.2); eGFR 32 See Note
[2024-12-11 13:42] LABS: INR 1.1 (0.9-1.3); Prothrombin Time 11.7 Seconds (9.0-12.2)
[2024-12-11 14:40] VITALS: BP 146/94; PULSE 73; RESP 18; TEMP 36.6; O2SAT 99
--- NOTE | 2024-12-11 15:03 | PD.EDADULT ---
ED General RME/HPI General Chief complaint: Extremity Injury, Lower Stated complaint: SENT BY [facility] FOR SEVERE SWELLING L) FOOT Time Seen by Provider: 12/11/24 14:51 Arrival date/time: 12/11/24 11:27 CC: Lower extremity edema HPI ongoing for the past week or so the patient has newly been have swelling in her left leg however she was concerned that she had because she has a clot in her right leg and is taking Eliquis. Patient denies shortness of breath or difficulty breathing. Patient has no chest pain. Daughter at bedside. RME / HPI RME / HPI narrative: 12/11/24 11:27 84-year-old female with a history of DVT, hypertension, hypothyroidism presents to the emergency room with a chief complaint of swelling and tenderness to her left lower extremity. Patient states she is currently on blood thinners due to a clot in her right leg. I have greeted and performed a focused initial assessment of this patient. A comprehensive ED assessment and evaluation of the patient, analysis of all test results, and completion of the medical decision making process will be conducted by additional ED providers. Related Data Home Medications ?Medication ?Instructions ?Recorded ?Confirmed Meclizine Hcl (Antivert) 25 mg PO [id number] ##0 06/26/09 amlodipine 10 mg tablet 10 mg PO QDAY 11/09/24 11/09/24 levothyroxine 25 mcg tablet 25 mcg PO QDAY 11/09/24 11/09/24 olmesartan 40 mg tablet 40 mg PO QDAY 11/09/24 11/09/24 Previous Rx's ?Medication ?Instructions ?Recorded apixaban 5 mg (74 tabs) tablets in 5 mg PO BID #74 tabs 06/04/24 a dose pack (Eliquis DVT-PE Treat 30D Start) Allergies Allergy/AdvReac Type Severity Reaction Status Date / Time No Known Allergies Allergy Verified 12/11/24 11:31 Review of Systems Review of Systems Narrative Review of Systems: GEN: No fever, no chills, no weight loss EYES: No discharge, no visual changes, no pain HEENT: No ear pain, no congestion, no sore throat PULM: No shortness of breath, no cough, no congestion CV: No chest pain, no dyspnea on exertion, no palpitations GI: No nausea, no vomiting, no diarrhea, no pain, no constipation : No frequency, no urgency, no dysuria MUSC/SKEL: No joint pain, no back pain, lower extremity edema SKIN: No rash PSYCH: No hallucinations, no depression HEME/LYMPH: No easy bleeding or bruising tendencies NEURO: No weakness, no headache Past Medical History Past Medical History NEUROLOGIC: Negative Seizures CARDIAC: Positive Hypertension; Negative Congestive Heart Failure RESPIRATORY: Negative Chronic Obstructive Pulmonary Disease (COPD) GENITOURINARY: Negative Renal Disease ENDOCRINE: Negative Diabetes Mellitus Type 1 or Diabetes Mellitus Type 2 OTHER HISTORY: Positive Cancer and Cervical Cancer; Negative Blood Transfusions or Anesthesia Reactions Social History SMOKING STATUS: Never smoker ED Exam Narrative Physical exam: [General: Not in any acute distress Head normocephalic HEENT: Within acceptable limits Neck is supple nontender Chest equal chest rise nontender to palpation Respiratory: Clear to auscultation no wheezes crackles or rubs CV: Rate rhythm is regular no murmurs rubs or clicks Abdomen is soft nontender no masses positive bowel sounds all 4 quadrants Back: No CVA tenderness no spinous process tenderness from cervical spine thoracic and lumbar spine Skin: Intact no petechiae rash induration ulceration or crepitus Extremities: Moving all extremity against resistance cap refill less than 2 seconds neurosensory intact. 1+ pitting edema to the lower extremities from mid calf to ankle. No edema to the dorsum of the foot. Neuro: Awake alert oriented x3 Glascow coma 15 no focal deficits] Course Quality Measures none Orders Category Date Time Status US venous doppler LE LT Stat Exams 12/11/24 12:11 Completed CBC Stat Lab 12/11/24 12:21 Completed CMP [Comprehensive Metabolic Panel] Stat Lab 12/11/24 12:21 Completed PT [Prothrombin Time with INR] Stat Lab 12/11/24 12:21 Completed PTT [Partial Thromboplastin Time] Stat Lab 12/11/24 12:21 Completed Vital Signs Vital signs: Vital Signs Temperature 98.5 F 12/11/24 12:11 Pulse Rate 85 12/11/24 12:11 Respiratory Rate 20 12/11/24 12:11 Blood Pressure 122/76 12/11/24 12:11 Pulse Oximetry (%) 97 12/11/24 12:11 Oxygen Delivery Method Room Air 12/11/24 12:11 [facility] Patient data External records reviewed:: [facility] previous records Clinical information provided by:: patient and family Social determinants that could affect healthcare access:: none Patient has the following chronic illnesses:: CKD DVT How is presenting disease/condition affected by chronic disease/condition?: exacerbated by Evaluation data The following diagnostics were reviewed and interpreted by me:: lab results and radiology exam(s) Lab and/or radiology exams considered but not ordered:: CBC shows no leukocytosis and H&H of 10.8 and 33.0 with platelets at 301 Coags within acceptable limits CMP shows a BUN of 33 a creatinine 1.6 note: This is unchanged from previous blood draws. No electrolyte imbalances other than a glucose of 109. No transaminitis or T. bili elevation. Ultrasound of the lower extremity is negative for DVT. Interpretation Summary: This patient has lower extremity edema I am not willing to give her diuretic as the patient already has CKD and is following up closely with both nephrology and her PCP. A lengthy discussion with her regarding fluid balances between keeping it in the vasculature and having it in her lower extremities. Patient is understanding states she will continue to sleep with her legs elevated. I suggested also using knee-high stockings to help slow the edema down. The patient vehemently denies any shortness of breath. Medications Medications considered but not ordered:: None Medication administrations:: None Consultations Consultation(s) initiated? (list below): No Diagnosis Differential Diagnosis ED Complaint MDM: CHF dependent edema DVT Most likely diagnosis given after review of the tests above:: Lower extremity edema Admission Indicated Admission indicated?: not indicated Explain why admission is indicated or not indicated:: Stable for discharge Admission Request Was there a request for admission?: No Disposition Plan Disposition Plan: Discharge Discharge Attestation Discharge Attestation: The patient and all family members were given an opportunity to ask questions and understood the discharge instructions. Discharge instructions specifically effects, indications for sooner follow up or return to the emergency department, and the expected course of current diagnosis. Patient condition: Stable Medical Decision Making Differential Diagnosis Differential Diagnosis: CHF dependent edema DVT Lab Data 12/11/24 12:21 12/11/24 12:21 Labs: Lab Results 12/11/24 Range/Units 12:21 WBC 6.5 (3.6-11.0) Thou/mm3 RBC 3.71 L (4.00-5.20) Miln/mm3 Hgb 10.8 L (12.0-16.0) g/dL Hct 33.0 L (36.0-46.0) % MCV 89 (80-100) fL MCH 29.1 (25.0-35.0) pg MCHC 32.7 (31.0-37.0) g/dl RDW Std Deviation 46.3 (36.4-46.3) fL Plt Count 301 D (140-440) Thou/mm3 Neut % (Auto) 62 (37-80) % Lymph % (Auto) 23 (10-50) % [place] % (Auto) 11 (0-12) % Eos % (Auto) 3 (0-10) % Baso % (Auto) 1 (0-2.5) % Neut # (Auto) 4.1 (1.8-7.7) Thou/mm3 Lymph # (Auto) 1.5 (1.0-4.8) Thou/mm3 [place] # (Auto) 0.7 (0.0-0.8) Thou/mm3 Eos # (Auto) 0.2 (0.0-0.5) Thou/mm3 Baso # (Auto) 0.1 (0.0-0.2) Thou/mm3 Immature Gran # (Auto) 0.02 H (0.00-0.00) Thou/mm3 Absolute Nucleated RBC 0.00 (0.00-0.00) Thou/mm3 Immature Gran % 0 (0-0) % Nucleated RBC % 0 (0) /100 WBC PT 11.7 (9.0-12.2) Seconds INR 1.1 (0.9-1.3) APTT 33.0 (22.0-36.0) Seconds Sodium 142 (136-145) mMol/L Potassium 3.9 (3.4-5.1) mMol/L Chloride 105 (98-107) mMol/L Carbon Dioxide 28.5 (20.0-31.0) mMol/L Anion Gap 9 (7-16) BUN 33 H (9-23) mg/dL Creatinine 1.6 H (0.6-1.3) mg/dL Estim Creat Clear Calc 21.7 L (>60) mL/min eGFR 32 L (60 - ) See Note BUN/Creatinine Ratio 21 H (12-20) Ratio Glucose 109 H (74-106) mg/dL Calculated Osmolality 291 (275-295) Calcium 9.1 (8.3-10.6) mg/dL Corrected Calcium 9.1 (8.5-10.1) mg/dL Total Bilirubin 0.4 (0.3-1.2) mg/dL AST 18 (0-34) U/L ALT 8 L (10-49) U/L Alkaline Phosphatase 60 (46-116) U/L Total Protein 6.4 (5.7-8.2) gm/dL Albumin 4.2 (3.4-4.8) gm/dL Globulin 2.2 L (2.3-3.5) gm/dL Albumin/Globulin Ratio 1.9 (1.2-2.2) Discharge Plan Plan Patient Disposition: HOME (Self Care) Patient condition on transfer: Stable Prescriptions/Referrals Prescriptions/Med Rec: No Action Meclizine Hcl (Antivert) 25 MG tablet 25 mg PO [id number] Qty: 0 Eliquis DVT-PE Treat 30D Start 5 mg (74 tabs) tablets,dose pack 5 mg PO BID Qty: 74 0RF levothyroxine 25 mcg tablet 25 mcg PO QDAY Patient Comments: TAKE 1 TABLET BY MOUTH EVERY DAY IN THE MORNING ON EMPTY STOMACH FOR 90 DAYS amlodipine 10 mg tablet 10 mg PO QDAY Patient Comments: TAKE 1 TABLET BY MOUTH EVERY DAY FOR 90 DAYS olmesartan 40 mg tablet 40 mg PO QDAY Patient Comments: TAKE 1 TABLET BY MOUTH EVERY DAY Referrals: Guido Clements MD [Primary Care Provider] - In 1 week Problem List Clinical Impression: Edema of both lower legs Patient/Caregiver Discharge Instructions Education Materials: ED Leg Swelling in Both Legs Additional Instructions: Sleep with your legs elevated, try the knee-high stockings in addition to this. If there is a worsening of symptoms or onset of shortness of breath return immediately to the emergency room for reevaluation otherwise follow-up either carriage rider and your primary care doctor for further medical management. Print Language: Divehi Stand Alone Forms: Anahi Award Info., Work/School Release, Patient Portal Info Letter CEE/BEATRIZ Supervising Physician CEE/BEATRIZ Supervising Physician: Berlin Wu ENP
== END 2024-12-11 16:02 | disposition home or self-care (01) ==
PROVIDERS: Nurse Practitioner Family; Emergency Provider Emergency Medicine; PCP Family Medicine
DX: R60.0 Localized edema (principal)
CPT/HCPCS: 36415; 80053; 85025; 85610; 85730; 93971; 99284

== ENCOUNTER → 2024-12-17 | Outpatient (CLI) | payer OTHER, SELFPAY ==
[2024-12-17 11:45] LABS: Basophils # (Auto) 0.1 Thou/mm3 (0.0-0.2); Basophils % (Auto) 1 % (0-2.5); Eosinophils # (Auto) 0.1 Thou/mm3 (0.0-0.5); Eosinophils % (Auto) 2 % (0-10); Hematocrit 30.9 % (36.0-46.0); Hemoglobin 10.3 g/dL (12.0-16.0); Immature Granulocytes % (Auto) 0 % (0-0); Immature Granulocytes Auto 0.02 Thou/mm3 (0.00-0.00); Immature Reticulocyte Fraction 7.9 % (3.0-15.9); Lymphocytes # (Auto) 1.4 Thou/mm3 (1.0-4.8); Lymphocytes % (Auto) 21 % (10-50); Mean Corpuscular HGB Conc 33.3 g/dl (31.0-37.0); Mean Corpuscular Hemoglobin 28.9 pg (25.0-35.0); Mean Corpuscular Volume 87 fL (80-100); Monocytes # (Auto) 0.6 Thou/mm3 (0.0-0.8); Monocytes % (Auto) 9 % (0-12); Neutrophils # (Auto) 4.3 Thou/mm3 (1.8-7.7); Neutrophils % (Auto) 66 % (37-80); Nucleated Red Blood Cell % 0 /100 WBC (0); Platelet Count 231 Thou/mm3 (140-440); RDW Standard Deviation 46.2 fL (36.4-46.3); Red Blood Count 3.56 Miln/mm3 (4.00-5.20); Reticulocyte % (Auto) 1.2 % (0.5-1.5); Reticulocyte Absolute Auto 41.7 Biln/L (25.0-75.0); Reticulocyte Hgb Content 33.4 pg (28.0-35.0); White Blood Count 6.5 Thou/mm3 (3.6-11.0)
[2024-12-17 12:10] LABS: Alanine Aminotransferase 11 U/L (10-49); Albumin, Serum 4.2 gm/dL (3.4-4.8); Albumin/Globulin Ratio 1.9 (1.2-2.2); Alkaline Phosphatase 54 U/L (46-116); Anion Gap 9 (7-16); Aspartate Amino Transferase 18 U/L (0-34); BUN/Creatinine Ratio 18 Ratio (12-20); Bilirubin,Total 0.7 mg/dL (0.3-1.2); Blood Urea Nitrogen 35 mg/dL (9-23); Calcium 9.2 mg/dL (8.3-10.6); Calcium (Corrected) 9.2 mg/dL (8.5-10.1); Carbon Dioxide 28.4 mMol/L (20.0-31.0); Chloride 102 mMol/L (98-107); Creatinine (Component) 1.9 mg/dL (0.6-1.3); Globulin 2.2 gm/dL (2.3-3.5); Glucose 90 mg/dL (74-106); Osmolality,Calculated 285 (275-295); Potassium 3.5 mMol/L (3.4-5.1); Sodium 139 mMol/L (136-145); Total Protein 6.4 gm/dL (5.7-8.2); eGFR 26 See Note
[2024-12-17 12:31] LABS: Ferritin 61 ng/mL (7.3-270.7); Iron 68 mcg/dL (50-170); Percent Iron Saturation 22 % (20-55); Total Iron Binding Capacity 296 mcg/dL (250-425); Unsaturated Iron Binding 228 (225-295)
== END | disposition home or self-care (01) ==
LOC: SCTO 10:30
PROVIDERS: PCP Family Medicine; Referring Provider Nurse Practitioner Family; Visit Provider Nurse Practitioner Family
DX: I82.401 Acute embolism and thrombosis of unspecified deep veins of right lower extremity (principal)
CPT/HCPCS: 36415; 80053; 82728; 83540; 83550; 85025; 85046

== ENCOUNTER 2024-12-19 13:47 | Outpatient (RCR) | payer OTHER, SELFPAY | END 2024-12-26 23:59 | disposition home or self-care (01) | LOC: SCTC 13:47 | PROVIDERS: PCP Family Medicine; Referring Provider Family Medicine; Visit Provider Nurse Practitioner Family | DX: Z09 Encounter for follow-up examination after completed treatment for conditions other than malignant neoplasm (principal); Z86.718 Personal history of other venous thrombosis and embolism; Z79.01 Long term (current) use of anticoagulants; D12.8 Benign neoplasm of rectum; N13.30 Unspecified hydronephrosis; E53.8 Deficiency of other specified B group vitamins; Z85.41 Personal history of malignant neoplasm of cervix uteri | CPT/HCPCS: 99212; G0463 ==

== ENCOUNTER 2025-01-22 14:38 | Outpatient (RCR) | payer OTHER, SELFPAY | END 2025-01-26 23:59 | disposition home or self-care (01) | LOC: SCTC 14:38 | PROVIDERS: PCP Family Medicine; Referring Provider Family Medicine; Visit Provider Nurse Practitioner Family | DX: E53.8 Deficiency of other specified B group vitamins (principal); Z86.718 Personal history of other venous thrombosis and embolism; Z79.01 Long term (current) use of anticoagulants | CPT/HCPCS: 96372; J3420 ==

== ENCOUNTER 2025-02-04 15:19 | Outpatient (RCR) | payer OTHER, SELFPAY ==
--- NOTE | 2025-02-13 16:47 | CTCFLWUP_ITS ---
Patient: MYNOR ELLIS : 1940 Page 2 of 2 FOLLOW UP NOTE DATE OF SERVICE: 02/13/2025 NAME: MYNOR ELLIS ACCOUNT: [id number] : 1940 AGE: 84 INTERVAL HISTORY: Patient is here to follow-up on the DVT on her right leg. Patient is on Eliquis and do not have any complaints with that. Patient is here to do labs reviewed. 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 DATE OF DIAGNOSIS: 06/04/2024 STAGE/TNM: Nonocclusive DVT diagnosed in May 2024 in the right leg TREATMENT HISTORY: Care?Plan Start?Date Cycle Day Intent B?12?initial 01/07/2025 1 28 Palliative Eliquis started in May 2024 HISTORY OF PRESENT ILLNESS: Patient is a 84-year-old woman with a history of cervical cancer and she was treated with radiation therapy. Patient was diagnosed with right lower extremity DVT in May 2024 06/04/2024 ultrasound of the right popliteal right peroneal right posterior tibial vein showed acute occlusive thrombus 08/06/2024 positive for nonocclusive thrombus involving the right popliteal right proximal peroneal veins this was an improvement compared to venous Doppler on June 04, 2024 08/09/2024 brain MRI showed increased white matter signal prominence mass effect upon the ventricular system not identified but there was prominent microvascular white matter changes differential include chronic multi-infarct or dementia pattern Patient had an ultrasound of her left lower extremity on 12/11/2024 due to complaints of pain to her left leg, ultrasound venous Doppler was negative for DVT. Patient reports that on 11/08/2024-11/11/2024 she was hospitalized due to lower GI bleed, patient had a colonoscopy on 11/10/2024 that showed a tumor in the rectum that was biopsied, patient reports that she was told by biopsy was negative for malignancy, plans to remove rectal tumor soon. Patient denies any other episodes of blood in the stool black stool patient has been taking oral ferrous sulfate for about a month tolerating it well labs from 12/17/2024 show hemoglobin 10.3 MCV 87 iron saturation 22% ferritin 61. 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 amlodipine - 5 mg 1 tab Daily 2. Eliquis - 5 mg 1 tab Twice a Day 3. K-Tab - 1 As directed 4. Klor-Con 8 - 8 mEq 1 tab As directed 5. levothyroxine - 25 mcg 1 tab Daily 6. olmesartan - 40 mg 1 tab Daily Medications Last Reconciled by Maryanne Prakash MA on 02/13/2025 ALLERGIES: No Known Drug Allergies REVIEW OF SYSTEMS: A complete 14-point review of systems was performed and is negative except as noted in interval history. PHYSICAL EXAMINATION: VITAL SIGNS: PAIN: 0 - No pain ECOG Performance Status: 0 - Asymptomatic and fully active GENERAL APPEARANCE: Appears well, in no apparent distress, appropriately interactive. HEENT: Normocephalic, no temporal wasting, normal conjunctiva, no scleral icterus, normal hearing, lips without lesions, neck normal range of motion. CARDIOVASCULAR: Not assessed. PULMONARY: Normal respiratory effort, no respiratory distress or use of accessory muscles, speaking in full sentences, no tachypnea. EXTREMITIES: No pedal edema or cyanosis. SKIN: Normal skin appearance. NEUROLOGIC: Alert and oriented x4. PSHYCHIATRIC: Appropriate affect, mood normal, behavior normal, intact thought and speech. LABORATORY DATA: I have personally reviewed and interpreted each of the patient?s relevant lab tests, abnormal findings are below: Date 02/08/25 ??WHITE?BLOOD?COUNT?(Thou/mm3) 7.1 ??RED?BLOOD?COUNT?(Miln/mm3) 3.77?L ??HEMOGLOBIN?(gm/dl) 11.0?L ??HEMATOCRIT?(%) 32.7?L ??PLATELET?COUNT?(Thou/mm3) 244 ??NEUTROPHILS?%,?AUTO?(%) 57 ??LYMPH?%,?AUTO?(%) 28 ??NEUTROPHILS,?AUTO?(Thou/mm3) 4.1 ??GLUCOSE,RANDOM?(mg/dL) 92 ??BLOOD?UREA?NITROGEN?(mg/dL) 41?H ??CREATININE?(mg/dL) 1.80?H ??SODIUM?(mmol/L) 144 ??POTASSIUM?(mmol/L) 3.6 ??CHLORIDE?(mmol/L) 104 ??CrCl?(CandG)?(ml/min) 19.59 ??AST/SGOT?(Unit/L) 18 ??ALT/SGPT?(Unit/L) 9?L ??ALKALINE?PHOSPHATASE?(Unit/L) 57 ??BILIRUBIN,?TOTAL?(mg/dL) 0.5 ??PROTEIN?TOTAL?(gm/dl) 6.3 ??ALBUMIN,?SERUM?(gm/dl) 4.1 ??GLOBULIN?(gm/dl) 2.2?L ??ALBUMIN/GLOBULIN?RATIO 1.9 ??CALCIUM,?SERUM?(mg/dL) 9.4 ??CALCIUM?SERUM?(CORRECTED)?(mg/dL) 9.4 ??RETICULOCYTE?ABSOLUTE?AUTO?(Biln/L) 40.7 ??TOTAL?IRON?BINDING?CAP?(S*)?(mcg/dL) 283 ??UNBOUND?IBC?(mcg/dL) 201?L ASSESSMENT/PLAN: 1. History of occlusive acute deep vein thrombus unprovoked, 06/04/2024 Patient is independent of her daily activities Patient has been on anticoagulation with Eliquis CT chest abdomen and pelvis done on 08/15/2024 showed thoracic aorta aneurysmal dilatation, no mediastinal lymphadenopathy, no pulmonary mass lesions, no liver lesions, did not show significant left hydronephrosis without definitive ureteral calculi recommending repeat CT scan of abdomen and pelvis with contrast to better assess etiology of the left hydronephrosis. There was no pelvic mass noted on the scan Patient was referred appropriately to nematologist and condominium association manager to make sure patient do not have any lesions causing pressure on the left kidney Will place referral to urologist Continue Eliquis ORDERS: Order # Description [id number] Comprehensive Metabolic Panel - 12 + CBC with Auto Diff + MD Follow Up 6 Month [id number] Serum Protein Electrophoresis + Serum Immunofixation Electrophoresis + Beta-2 Microglobulin + Quant Immunoglobulins + Free kappa and lambda light chains plus ratio, quantitative + 24 Hour Urine for total Protein + Urine Protien Electrophoresis [id number] Erythropoieten Level [id number] MD Follow Up 2 Months [id number] CBC + Comprehensive Metabolic Panel [id number] Lab Appointment [id number] CBC + Comprehensive Metabolic Panel [id number] Lab Appointment [id number] CBC + Comprehensive Metabolic Panel [id number] Lab Appointment [id number] CBC + Comprehensive Metabolic Panel [id number] Lab Appointment [id number] CBC + Comprehensive Metabolic Panel [id number] Lab Appointment [id number] CBC + Comprehensive Metabolic Panel [id number] Lab Appointment [id number] CBC + Comprehensive Metabolic Panel [id number] Lab Appointment [id number] CBC + Comprehensive Metabolic Panel [id number] Lab Appointment [id number] CBC + Comprehensive Metabolic Panel [id number] Lab Appointment [id number] CBC + Comprehensive Metabolic Panel [id number] Lab Appointment RETURN TO CLINIC: BILLING AND COMPLIANCE: I reviewed external records from providers outside my specialty as summarized above. I spent a total of 50 minutes on this patient?s care on the day of their visit excluding time spent related to any billed procedures. This time includes time spent with the patient as well as time spent documenting in the medical record, reviewing patients records and tests, obtaining history, placing orders, communicating with other healthcare professionals, counseling the patient, family or caregiver, and/or care coordination for the diagnoses above. Electronically Signed by: Herb Love MD T: 4:44 PM CC: PCP: Guido Clements Referring: uGido Clements This document was completed utilizing speech recognition software. Grammatical errors, random word insertions, pronoun errors, and incomplete sentences are an occasional consequence of this system due to software limitations, ambient noise, and hardware issues. Any formal questions or concerns about the content, text or information contained within the body of this dictation should be directly addressed to the provider for clarification.
== END 2025-02-25 23:59 | disposition home or self-care (01) ==
LOC: SCTC 15:19
PROVIDERS: PCP Family Medicine; Referring Provider Family Medicine; Visit Provider Nurse Practitioner Family
DX: Z09 Encounter for follow-up examination after completed treatment for conditions other than malignant neoplasm (principal); Z86.718 Personal history of other venous thrombosis and embolism; Z79.01 Long term (current) use of anticoagulants; E53.8 Deficiency of other specified B group vitamins; I77.810 Thoracic aortic ectasia
CPT/HCPCS: 96372; 99212; J3420; G0463

== ENCOUNTER → 2025-02-08 | Outpatient (CLI) | payer OTHER, SELFPAY ==
[2025-02-08 11:04] LABS: Misc Send Out* See Sep Rpt
[2025-02-08 11:29] LABS: Basophils # (Auto) 0.1 Thou/mm3 (0.0-0.2); Basophils % (Auto) 1 % (0-2.5); Eosinophils # (Auto) 0.2 Thou/mm3 (0.0-0.5); Eosinophils % (Auto) 3 % (0-10); Hematocrit 32.7 % (36.0-46.0); Immature Granulocytes % (Auto) 0 % (0-0); Immature Granulocytes Auto 0.01 Thou/mm3 (0.00-0.00); Lymphocytes % (Auto) 28 % (10-50); Mean Corpuscular HGB Conc 33.6 g/dl (31.0-37.0); Mean Corpuscular Hemoglobin 29.2 pg (25.0-35.0); Mean Corpuscular Volume 87 fL (80-100); Monocytes # (Auto) 0.7 Thou/mm3 (0.0-0.8); Monocytes % (Auto) 10 % (0-12); Neutrophils # (Auto) 4.1 Thou/mm3 (1.8-7.7); Neutrophils % (Auto) 57 % (37-80); Nucleated Red Blood Cell % 0 /100 WBC (0); Platelet Count 244 Thou/mm3 (140-440); RDW Standard Deviation 44.9 fL (36.4-46.3); Red Blood Count 3.77 Miln/mm3 (4.00-5.20); Reticulocyte % (Auto) 1.1 % (0.5-1.5); Reticulocyte Absolute Auto 40.7 Biln/L (25.0-75.0); Reticulocyte Hgb Content 31.6 pg (28.0-35.0); White Blood Count 7.1 Thou/mm3 (3.6-11.0)
[2025-02-08 12:02] LABS: Ferritin 55 ng/mL (7.3-270.7); Iron 82 mcg/dL (50-170); Percent Iron Saturation 28 % (20-55); Total Iron Binding Capacity 283 mcg/dL (250-425); Unsaturated Iron Binding 201 (225-295)
[2025-02-08 12:03] LABS: Folate > 24.00 ng/mL (>5.38); Vitamin B12 1773 pg/mL (211-911); Vitamin D 25 Hydroxy Total 44.8 ng/mL (7.3-40.2)
[2025-02-08 12:12] LABS: Alanine Aminotransferase 9 U/L (10-49); Albumin, Serum 4.1 gm/dL (3.4-4.8); Albumin/Globulin Ratio 1.9 (1.2-2.2); Alkaline Phosphatase 57 U/L (46-116); Anion Gap 11 (7-16); Aspartate Amino Transferase 18 U/L (0-34); BUN/Creatinine Ratio 23 Ratio (12-20); Bilirubin,Total 0.5 mg/dL (0.3-1.2); Blood Urea Nitrogen 41 mg/dL (9-23); Calcium 9.4 mg/dL (8.3-10.6); Calcium (Corrected) 9.4 mg/dL (8.5-10.1); Carbon Dioxide 28.8 mMol/L (20.0-31.0); Chloride 104 mMol/L (98-107); Creatinine (Component) 1.8 mg/dL (0.6-1.3); Globulin 2.2 gm/dL (2.3-3.5); Glucose 92 mg/dL (74-106); Osmolality,Calculated 296 (275-295); Phosphorous 4.1 mg/dL (2.4-5.1); Potassium 3.6 mMol/L (3.4-5.1); Sodium 144 mMol/L (136-145); Total Protein 6.3 gm/dL (5.7-8.2); eGFR 27 See Note
[2025-02-08 12:30] LABS: Collection Type, Urine Clean Catch
[2025-02-08 13:02] LABS: Bilirubin,Urine Negative (Negative); Blood,Urine 1+ (Negative); Clarity,Urine Turbid (Clear/Hazy); Color,Urine Lt-Yellow (Lt Yel-Yel); Glucose, Urine Negative (Negative); Ketones,Urine Negative (Negative); Leukocyte Esterase,Urine Positive (Negative); Nitrite,Urine Negative (Negative); Protein,Urine Trace (Neg - Trace); RBC,Urine 8 /hpf (0-3); Specific Gravity,Urine 1.011 (1.001-1.035); Squamous Epithelial Cell,Urine < 1 /hpf (0-5); Urobilinogen,Urine Negative mg/dL (0.0-1.0); WBC,Urine 740 /hpf (0-5)
[2025-02-08 13:09] LABS: Creatinine,Random Urine 40 mg/dL (30-125); Protein Total, Random Urine 27 mg/dL (1-14)
== END | disposition home or self-care (01) ==
LOC: COPL 10:51
PROVIDERS: PCP Family Medicine; Referring Provider Internal Medicine; Visit Provider Internal Medicine
DX: I12.9 Hypertensive chronic kidney disease with stage 1 through stage 4 chronic kidney disease, or unspecified chronic kidney disease (principal); N18.32 Chronic kidney disease, stage 3b; D63.1 Anemia in chronic kidney disease; I82.401 Acute embolism and thrombosis of unspecified deep veins of right lower extremity; E53.8 Deficiency of other specified B group vitamins
CPT/HCPCS: 36415; 80053; 81001; 82306; 82570; 82607; 82728; 82746; 83540; 83550; 84100; 84156; 85025; 85046

== ENCOUNTER 2025-03-04 15:17 | Outpatient (RCR) | payer OTHER, SELFPAY | END 2025-03-28 23:59 | disposition home or self-care (01) | LOC: SCTC 15:17 | PROVIDERS: PCP Family Medicine; Referring Provider Family Medicine; Visit Provider Nurse Practitioner Family | DX: E53.8 Deficiency of other specified B group vitamins (principal) | CPT/HCPCS: 96372; J3420 ==

== ENCOUNTER 2025-03-13 09:20 | Day surgery (SDC) | payer OTHER, SELFPAY ==
[2025-03-13] VITALS (9 sets, daily range): BP systolic 116–154; BP diastolic 75–88; PULSE 69–81; RESP 15–24; TEMP 36.4–36.6; O2SAT 95–100; BMI 20.5
[2025-03-13] MEDS: SODIUM CHLORIDE 0.9% 500 ML 500 ML 20 ML IV (11:18)
[2025-03-13] MEDS: fentaNYL CIT INJ 50 mCg/ML AMP 2ML (ASD USE ONLY) IVP (11:19)
[2025-03-13] MEDS: MIDAZOLAM INJ 1 MG/ML VIAL 2 ML (ASD USE ONLY) 2 MG IVP (11:22)
--- NOTE | 2025-03-13 11:50 | SUR.PHASEII ---
1132: Pt received for recovery. Report from Hortencia FLEMING. Pt sleepy. Is arousable with eye opening then immediately drifts back to sleep. Resp even, unlabored. VS stable. No c/o pain, discomfort.
--- NOTE | 2025-03-13 14:04 | SUR.PHASEII ---
1200: Pt more awake, alert. VS stable. Denies pain. Sitting up tolerating po fluids with no difficulty swallowing and no n/v. 1230: Pt fully awake, oriented x3. Pt assisted to restroom. Ambulation steady. Pt and daughter stated understanding of discharge instructions. Pt discharged from [facility] in stable condition.
== END 2025-03-13 12:30 | disposition home or self-care (01) ==
PROVIDERS: PCP Family Medicine; Referring Provider Specialist; Visit Provider Specialist
PROC: 0DJD8ZZ Inspection of Lower Intestinal Tract, Via Natural or Artificial Opening Endoscopic (ICD-10-PCS; CPT 45330; principal; 2025-03-13 10:30)
DX: K64.9 Unspecified hemorrhoids (principal); K62.1 Rectal polyp
CPT/HCPCS: 45330; A4649; J2250; J3010; J7999

== ENCOUNTER → 2025-03-22 | Outpatient (CLI) | payer OTHER, SELFPAY ==
[2025-03-22 13:19] LABS: Basophils # (Auto) 0.1 Thou/mm3 (0.0-0.2); Basophils % (Auto) 1 % (0-2.5); Eosinophils # (Auto) 0.1 Thou/mm3 (0.0-0.5); Eosinophils % (Auto) 1 % (0-10); Hematocrit 34.7 % (36.0-46.0); Hemoglobin 11.2 g/dL (12.0-16.0); Immature Granulocytes Auto 0.02 Thou/mm3 (0.00-0.00); Lymphocytes # (Auto) 1.6 Thou/mm3 (1.0-4.8); Lymphocytes % (Auto) 19 % (10-50); Mean Corpuscular HGB Conc 32.3 g/dl (31.0-37.0); Mean Corpuscular Hemoglobin 29.1 pg (25.0-35.0); Mean Corpuscular Volume 90 fL (80-100); Monocytes # (Auto) 0.6 Thou/mm3 (0.0-0.8); Monocytes % (Auto) 7 % (0-12); Neutrophils # (Auto) 5.9 Thou/mm3 (1.8-7.7); Neutrophils % (Auto) 72 % (37-80); Nucleated Red Blood Cell # 0.00 Thou/mm3 (0.00-0.00); Nucleated Red Blood Cell % 0 /100 WBC (0); Platelet Count 221 Thou/mm3 (140-440); RDW Standard Deviation 46.7 fL (36.4-46.3); Red Blood Count 3.85 Miln/mm3 (4.00-5.20); White Blood Count 8.2 Thou/mm3 (3.6-11.0)
[2025-03-22 13:20] LABS: Immature Reticulocyte Fraction 8.4 % (3.0-15.9); Reticulocyte % (Auto) 1.0 % (0.5-1.5); Reticulocyte Absolute Auto 36.3 Biln/L (25.0-75.0); Reticulocyte Hgb Content 31.7 pg (28.0-35.0)
[2025-03-22 13:32] LABS: Alanine Aminotransferase 11 U/L (10-49); Albumin, Serum 4.0 gm/dL (3.4-4.8); Albumin/Globulin Ratio 1.8 (1.2-2.2); Alkaline Phosphatase 51 U/L (46-116); Anion Gap 9 (7-16); Aspartate Amino Transferase 20 U/L (0-34); BUN/Creatinine Ratio 17 Ratio (12-20); Bilirubin,Total 0.4 mg/dL (0.3-1.2); Blood Urea Nitrogen 31 mg/dL (9-23); Calcium 9.1 mg/dL (8.3-10.6); Calcium (Corrected) 9.1 mg/dL (8.5-10.1); Carbon Dioxide 30.3 mMol/L (20.0-31.0); Chloride 104 mMol/L (98-107); Creatinine (Component) 1.8 mg/dL (0.6-1.3); Globulin 2.2 gm/dL (2.3-3.5); Glucose 128 mg/dL (74-106); Osmolality,Calculated 293 (275-295); Potassium 3.2 mMol/L (3.4-5.1); Sodium 143 mMol/L (136-145); Total Protein 6.2 gm/dL (5.7-8.2); eGFR 27 See Note
[2025-03-22 13:39] LABS: Cardiac Risk Estimate 3.4 RATIO (3.7-5.6); Cholesterol 198 mg/dL (132-200); HDL Cholesterol 58 mg/dL (40-60); LDL Cholesterol,Calculated 122 mg/dL (0-130); Thyroid Stimulating Hormone 4.85 uIU/mL (0.55-4.78); Triglycerides 88 mg/dL (30-150)
[2025-03-22 13:42] LABS: Folate > 24.00 ng/mL (>5.38)
[2025-03-22 13:50] LABS: Ferritin 52 ng/mL (7.3-270.7); Iron 65 mcg/dL (50-170); Percent Iron Saturation 23 % (20-55); T4 (Thyroxine) 8.2 mcg/dL (4.5-10.9); Total Iron Binding Capacity 279 mcg/dL (250-425); Unsaturated Iron Binding 214 (225-295)
== END | disposition home or self-care (01) ==
LOC: COPL 11:54
PROVIDERS: PCP Family Medicine; Referring Provider Family Medicine; Visit Provider Nurse Practitioner Family
DX: I82.401 Acute embolism and thrombosis of unspecified deep veins of right lower extremity (principal); E53.8 Deficiency of other specified B group vitamins; I12.9 Hypertensive chronic kidney disease with stage 1 through stage 4 chronic kidney disease, or unspecified chronic kidney disease; N18.31 Chronic kidney disease, stage 3a; E03.9 Hypothyroidism, unspecified; E78.2 Mixed hyperlipidemia
CPT/HCPCS: 36415; 80053; 80061; 82728; 82746; 83540; 83550; 84436; 84443; 85025; 85046

== ENCOUNTER 2025-04-04 14:17 | Outpatient (RCR) | payer OTHER, SELFPAY | END 2025-04-28 23:59 | disposition home or self-care (01) | LOC: SCTC 14:17 | PROVIDERS: PCP Family Medicine; Referring Provider Family Medicine; Visit Provider Nurse Practitioner Family | DX: Z09 Encounter for follow-up examination after completed treatment for conditions other than malignant neoplasm (principal); Z86.718 Personal history of other venous thrombosis and embolism; Z79.01 Long term (current) use of anticoagulants; E53.8 Deficiency of other specified B group vitamins; Z85.41 Personal history of malignant neoplasm of cervix uteri | CPT/HCPCS: 96372; 99212; J3420; G0463 ==

== ENCOUNTER 2025-05-28 14:56 | Outpatient (RCR) | payer OTHER, SELFPAY | END 2025-05-28 23:59 | disposition home or self-care (01) | LOC: SCTC 14:56 | PROVIDERS: PCP Family Medicine; Referring Provider Family Medicine; Visit Provider Internal Medicine Hematology & Oncology | DX: E53.8 Deficiency of other specified B group vitamins (principal); Z86.718 Personal history of other venous thrombosis and embolism; Z79.01 Long term (current) use of anticoagulants | CPT/HCPCS: 96372; J3420 ==

== ENCOUNTER → 2025-07-11 | Outpatient (CLI) | payer OTHER, SELFPAY ==
[2025-07-11 11:52] LABS: Basophils # (Auto) 0.1 Thou/mm3 (0.0-0.2); Basophils % (Auto) 1 % (0-2.5); Eosinophils # (Auto) 0.1 Thou/mm3 (0.0-0.5); Eosinophils % (Auto) 2 % (0-10); Hematocrit 34.4 % (36.0-46.0); Hemoglobin 11.1 g/dL (12.0-16.0); Immature Granulocytes Auto 0.03 Thou/mm3 (0.00-0.00); Immature Reticulocyte Fraction 5.7 % (3.0-15.9); Lymphocytes # (Auto) 2.2 Thou/mm3 (1.0-4.8); Lymphocytes % (Auto) 30 % (10-50); Mean Corpuscular HGB Conc 32.3 g/dl (31.0-37.0); Mean Corpuscular Hemoglobin 29.6 pg (25.0-35.0); Mean Corpuscular Volume 92 fL (80-100); Monocytes # (Auto) 0.7 Thou/mm3 (0.0-0.8); Monocytes % (Auto) 10 % (0-12); Neutrophils # (Auto) 4.2 Thou/mm3 (1.8-7.7); Neutrophils % (Auto) 57 % (37-80); Nucleated Red Blood Cell # 0.00 Thou/mm3 (0.00-0.00); Nucleated Red Blood Cell % 0 /100 WBC (0); Platelet Count 238 Thou/mm3 (140-440); RDW Standard Deviation 49.3 fL (36.4-46.3); Red Blood Count 3.75 Miln/mm3 (4.00-5.20); Reticulocyte % (Auto) 1.1 % (0.5-1.5); Reticulocyte Absolute Auto 39.4 Biln/L (25.0-75.0); Reticulocyte Hgb Content 33.0 pg (28.0-35.0); White Blood Count 7.3 Thou/mm3 (3.6-11.0)
[2025-07-11 12:06] LABS: Alanine Aminotransferase 11 U/L (10-49); Albumin, Serum 4.5 gm/dL (3.4-4.8); Albumin/Globulin Ratio 2.5 (1.2-2.2); Alkaline Phosphatase 55 U/L (46-116); Anion Gap 8 (7-16); Aspartate Amino Transferase 22 U/L (0-34); BUN/Creatinine Ratio 15 Ratio (12-20); Bilirubin,Total 0.6 mg/dL (0.3-1.2); Blood Urea Nitrogen 24 mg/dL (9-23); Calcium 9.3 mg/dL (8.3-10.6); Calcium (Corrected) 9.3 mg/dL (8.5-10.1); Carbon Dioxide 30.9 mMol/L (20.0-31.0); Chloride 104 mMol/L (98-107); Creatinine (Component) 1.6 mg/dL (0.6-1.3); Globulin 1.8 gm/dL (2.3-3.5); Glucose 90 mg/dL (74-106); Osmolality,Calculated 288 (275-295); Potassium 3.7 mMol/L (3.4-5.1); Sodium 143 mMol/L (136-145); Total Protein 6.3 gm/dL (5.7-8.2); eGFR 31 See Note
[2025-07-11 12:47] LABS: Ferritin 92 ng/mL (7.3-270.7); Iron 87 mcg/dL (50-170); Percent Iron Saturation 32 % (20-55); Total Iron Binding Capacity 266 mcg/dL (250-425); Unsaturated Iron Binding 179 (225-295)
[2025-07-11 12:49] LABS: Folate > 24.00 ng/mL (>5.38); Vitamin B12 578 pg/mL (211-911)
[2025-07-18 06:30] LABS: Erythropoietin (EPO)* 5.7 mIU/mL (2.6-18.5); Haptoglobin* 58 mg/dL (43-212)
== END | disposition home or self-care (01) ==
LOC: SCTO 10:42
PROVIDERS: PCP Family Medicine; Referring Provider Nurse Practitioner Family; Visit Provider Nurse Practitioner Family
DX: I82.401 Acute embolism and thrombosis of unspecified deep veins of right lower extremity (principal); E53.8 Deficiency of other specified B group vitamins
CPT/HCPCS: 36415; 80053; 82607; 82668; 82728; 82746; 83010; 83540; 83550; 85025; 85046

== ENCOUNTER 2025-07-18 14:17 | Outpatient (RCR) | payer OTHER, SELFPAY | END 2025-07-28 23:59 | disposition home or self-care (01) | LOC: SCTC 14:17 | PROVIDERS: PCP Family Medicine; Referring Provider Family Medicine; Visit Provider Nurse Practitioner Family | DX: E53.8 Deficiency of other specified B group vitamins (principal); Z86.718 Personal history of other venous thrombosis and embolism; Z79.01 Long term (current) use of anticoagulants; N13.30 Unspecified hydronephrosis; R19.00 Intra-abdominal and pelvic swelling, mass and lump, unspecified site | CPT/HCPCS: 96372; 99212; J3420; G0463 ==

== ENCOUNTER → 2025-08-02 | Outpatient (CLI) | payer OTHER, SELFPAY ==
[2025-08-02 13:26] LABS: Basophils # (Auto) 0.1 Thou/mm3 (0.0-0.2); Basophils % (Auto) 1 % (0-2.5); Eosinophils # (Auto) 0.1 Thou/mm3 (0.0-0.5); Eosinophils % (Auto) 2 % (0-10); Hematocrit 34.7 % (36.0-46.0); Hemoglobin 11.3 g/dL (12.0-16.0); Immature Granulocytes Auto 0.01 Thou/mm3 (0.00-0.00); Lymphocytes # (Auto) 1.8 Thou/mm3 (1.0-4.8); Lymphocytes % (Auto) 32 % (10-50); Mean Corpuscular HGB Conc 32.6 g/dl (31.0-37.0); Mean Corpuscular Hemoglobin 29.8 pg (25.0-35.0); Mean Corpuscular Volume 92 fL (80-100); Monocytes # (Auto) 0.6 Thou/mm3 (0.0-0.8); Monocytes % (Auto) 11 % (0-12); Neutrophils # (Auto) 3.0 Thou/mm3 (1.8-7.7); Neutrophils % (Auto) 53 % (37-80); Nucleated Red Blood Cell # 0.00 Thou/mm3 (0.00-0.00); Nucleated Red Blood Cell % 0 /100 WBC (0); Platelet Count 210 Thou/mm3 (140-440); RDW Standard Deviation 50.0 fL (36.4-46.3); Red Blood Count 3.79 Miln/mm3 (4.00-5.20); White Blood Count 5.7 Thou/mm3 (3.6-11.0)
[2025-08-02 13:46] LABS: Creatinine,Random Urine 28 mg/dL (30-125); Protein Total, Random Urine < 6 mg/dL (1-14)
[2025-08-02 13:51] LABS: Albumin, Serum 4.2 gm/dL (3.4-4.8); Anion Gap 9 (7-16); BUN/Creatinine Ratio 16 Ratio (12-20); Blood Urea Nitrogen 26 mg/dL (9-23); Calcium 8.9 mg/dL (8.3-10.6); Calcium (Corrected) 8.9 mg/dL (8.5-10.1); Carbon Dioxide 29.9 mMol/L (20.0-31.0); Chloride 105 mMol/L (98-107); Creatinine (Component) 1.6 mg/dL (0.6-1.3); Glucose 92 mg/dL (74-106); Osmolality,Calculated 291 (275-295); Phosphorous 3.6 mg/dL (2.4-5.1); Potassium 4.0 mMol/L (3.4-5.1); Sodium 144 mMol/L (136-145); Vitamin D 25 Hydroxy Total 42.6 ng/mL (7.3-40.2); eGFR 31 See Note
[2025-08-02 13:56] LABS: Parathyroid Hormone Intact 83.4 pg/ml (18.5-88.0)
[2025-08-02 14:00] LABS: Iron 110 mcg/dL (50-170); Percent Iron Saturation 43 % (20-55); Total Iron Binding Capacity 254 mcg/dL (250-425); Unsaturated Iron Binding 144 (225-295)
== END | disposition home or self-care (01) ==
LOC: COPL 11:45
PROVIDERS: PCP Family Medicine; Referring Provider Internal Medicine; Visit Provider Internal Medicine
DX: I12.9 Hypertensive chronic kidney disease with stage 1 through stage 4 chronic kidney disease, or unspecified chronic kidney disease (principal); N18.32 Chronic kidney disease, stage 3b; D63.1 Anemia in chronic kidney disease
CPT/HCPCS: 36415; 80069; 82306; 82570; 83540; 83550; 83970; 84156; 85025